=== PATIENT | female | born 1955 | race Caucasian/White ===

== ENCOUNTER 2016-07-25 15:11 | Emergency (ER) | payer OTHER, MEDICARE ==
[~2016-07-25] VITALS: Ht 170.2 cm; Wt 59.0 kg
[~2016-07-25 15:11] MED LIST: ADVAIR 250-501 EACH INH; ASPIRIN EC81 M1 PO; BISACODYL10 MG PR; BUPROPION HCL150 MG PO; CARISOPRODOL350 M1 PO; CYPROHEPTADINE H4 MG PO; DIAZEPAM10 M1 PO; FUROSEMIDE20 M1 PO; HYDROXYZINE PAM50 MG PO; LINZESS145 MC1 PO; LOPRESSOR 12.12.5 MG PO; METFORMIN HCL500 M3 PO; MORPHINE SULFAT15 MG PO; NAPROXEN500 MG PO; NEURONTIN800 M2 PO; NICOTINE T7 MG/24 HR TOP; OLANZAPINE20 MG PO; OMEPRAZOLE40 MG PO; PERCOCET 325 MG1 TA3 PO; POTASSIUM CHLO20 ME1 PO; SIMVASTATIN20 MG PO; SPIRIVA 18 MCG18 MCG INH; Senokot S PO; TRAZODONE HCL100 MG PO; TRAZODONE HCL300 M1 PO; VALIUM 10 MG. T10 MG PO; VESICARE5 M1 PO; WELLBUTRIN SR100 M1 PO; WELLBUTRIN SR150 MG PO; WELLBUTRIN100 M1 PO; ZOCOR10 M1 PO; ZYPREXA5 M1 PO; [UNRECOGNIZED DRUG - OTHER] PO
--- NOTE | 2016-07-25 15:26 | ED AMS/SEIZURE/WEAK/DIZZY ---
History of Present Illness General Chief Complaint: Altered Mental Status Stated Complaint: BIBA VN REPORT AMS, ? MED MISUSE Source: EMS Exam Limitations: clinical condition Allergies Coded Allergies: Sulfa (Sulfonamide Antibiotics) (Intermediate, BURNING-PT REPORTS WOUND TURNS GREEN 02/20/16) Triage Nurses Notes Reviewed? yes Onset: Abrupt Duration: constant Timing: single episode today Injury Environment: home Severity: severe Severity Numbers: 10 No Modifying Factors: none HPI: Patient is a 61-year-old female with a past medical history of Hypertension, hyperlipidemia, bipolar disorder on the back pain asthma, schizophrenia, chronic pain, depression who is brought in by ambulance for concerns of altered mental status. EMS states to nursing staff discussed with me that the visiting nurse presented to patient's private residence today and noted patient be slumped over in the couch and showing signs of drowsiness however is arousable. She does admit to taking an UNknown "extra" medications however no specific admission is noted by patient. History is limited due to clinical presentation Patient on examination was drowsy however arousable upon stimuli in which she does not state what medications she took however denies any suicidal or homicidal ideation. Denies any alcohol use (LONI SANCHEZ,JOSE RAFAEL) Vital Signs & Intake/Output Vital Signs & Intake/Output Vital Signs Date Time Temp Pulse Resp B/P Pulse O2 O2 Flow FiO2 Ox Delivery Rate 07/25 2102 Room Air 07/25 210 98.2 99 16 119/71 96 Room Air 07/25 1916 97.1 96 18 125/68 94 Room Air 07/25 1651 90 16 116/64 99 Nasal 2.0L Cannula 07/25 1553 Nasal 2.0L Cannula 07/25 1519 103 18 101/65 94 Room Air Reconcile Medications Albuterol Sulfate (Proair Hfa) 90 MCG HFA.AER.AD 2 PUF INH 4 TIMES/DAY NPO RESPIRATORY (Reported) Aspirin (Ecotrin*) 81 MG TABLET.DR 1 TAB PO DAILY HEART (Reported) Bupropion HCl (Wellbutrin Sr) 150 MG TABLET.ER 1 TAB PO BID UNKNOWN (Reported ) Carisoprodol 350 MG TABLET 1 TAB PO TID MUSCLE RELAXER (Reported) Diazepam 10 MG TABLET 1-2 TAB PO AD PRN PRIOR TO PROCEDURE (Reported) Fluticasone/Salmeterol (Advair 250-50 Diskus) 250 MCG-50 MCG/DOSE BLST.W.DEV 1 PUF INH BID RESPIRATORY (Reported) Furosemide 20 MG TABLET 0.5 TAB PO DAILY PRN EDEMA (Reported) Gabapentin (Neurontin) 800 MG TABLET 1 TAB PO TID NERVE PAIN (Reported) Hydroxyzine Pamoate (Vistaril) 50 MG CAPSULE 1 CAP PO 4 TIMES/DAY UNKNOWN ( Reported) Latanoprost (Xalatan) 0.005 % DROPS 1 GTT OPH QHS BOTH EYES (Reported) Linaclotide (Linzess) 145 MCG CAPSULE 1 CAP PO DAILY GI (Reported) Magnesium Oxide (Magnesium) 400 MG CAPSULE 1 CAP PO DAILY SUPPLEMENT ( Reported) Metformin HCl 500 MG TABLET 1 TAB PO QAM DM (Reported) Multivitamin (Multi-Day Vitamins) 1 EACH TABLET 1 TAB PO DAILY SUPPLEMENT ( Reported) Nitroglycerin 0.4 MG TAB.SUBL 1 TAB SL AD PRN CHEST PAIN (Reported) 1st sign of attack; may repeat every 5 minutes until relief; if pain persists after 3 tablets in 15 minutes, prompt medical att Olanzapine (Zyprexa) 5 MG TABLET 1 TAB PO QPM MENTAL HEALTH (Reported) Olanzapine 20 MG TABLET 1 TAB PO QPM MENTAL HEALTH (Reported) [place]-3/Dha/Epa/Fish Oil (Fish Oil 1,000 MG Softgel) 1,000 MG (120 MG-180 MG) CAPSULE 1 CAP PO DAILY SUPPLEMENT (Reported) Omeprazole 40 MG CAPSULE.DR 1 CAP PO BID GI (Reported) Oxycodone HCl/Acetaminophen (Percocet 10-325 MG Tablet) 10 MG-325 MG TABLET 1 TAB PO Q6H PRN PAIN (Reported) Perphenazine/Amitriptyline HCl (Perphen-Amitrip 4 MG-50 MG Tab) 4 MG-50 MG TABLET 1 TAB PO TID MENTAL HEALTH (Reported) Potassium Chloride 10 MEQ TABLET.ER 2 TAB PO DAILY SUPPLEMENT (Reported) Simvastatin (Zocor*) 10 MG TABLET 1 TAB PO DAILY CHOLESTEROL (Reported) Solifenacin Succinate (Vesicare) 5 MG TABLET 1 TAB PO DAILY BLADDER (Reported ) Tiotropium [place] (Spiriva) 18 MCG CAP.W.DEV 1 CAP INH DAILY RESPIRATORY ( Reported) Topiramate (Topamax) 100 MG TABLET 1 TAB PO BID UNKNOWN (Reported) Trazodone HCl 300 MG TABLET 1 TAB PO QPM SLEEP (Reported) (BLAKE CASTREJON,SELVIN D) Past History Travel History Traveled to [place] past 21 day No Medical History Any Pertinent Medical History? see below for history Neurological: NONE EENT: NONE Cardiovascular: hypertension, hyperlipidemia Respiratory: asthma, COPD Gastrointestinal: NONE Hepatic: NONE Renal: NONE Musculoskeletal: NONE, chronic back pain, osteoarthritis Psychiatric: anxiety, bipolar disease, depression, schizophrenia Endocrine: NONE Blood Disorders: NONE Cancer(s): NONE ESE TEACHER/Reproductive: NONE History of MRSA: No History of VRE: No History of CDIFF: No Surgical History Surgical History: NECK SURGERY BACK SURGERY Psychosocial History Who do you live with Patient/Self Services at Home Nursing What is your primary language Uzbek Family History Family History, If Any: MOTHER Relation not specified for: FH: heart disease Hx Contributory? No (JOSE RAFAEL COHEN) Review of Systems Review of Systems Constitutional: Reports: no symptoms. EENTM: Reports: no symptoms. Respiratory: Reports: no symptoms. Cardiovascular: Reports: no symptoms. GI: Reports: no symptoms. Genitourinary: Reports: no symptoms. Musculoskeletal: Reports: no symptoms. Skin: Reports: no symptoms. Neurological/Psychological: Reports: no symptoms. Hematologic/Endocrine: Reports: no symptoms. Immunologic/Allergic: Reports: no symptoms. All Other Systems: Reviewed and Negative (JOSE RAFAEL COHEN) Physical Exam Physical Exam General Appearance: DROWSY AROUSABLE WITHVERBAL STIMULI Head: atraumatic Comments: Well-developed well-nourished person in no acute distress HEENT: Normal EENT exam, pinpoint pupils noted extraocular motion intact, no nystagmus. Pupils equally round and reactive to light and accommodation. Nose is atraumatic. External auditory canal and Tympanic membranes clear. Pharynx normal. No swelling or edema. Neck: Supple, no lymphadenopathy, Back: Nontender, no CVA tenderness. Cardiovascular: Regular rate and rhythms no murmurs rubs or gallops, normal JVP Respiratory: Chest nontender. No respiratory distress.breath sounds clear to auscultation bilaterally Abdomen: Soft, nontender nondistended, no appreciable organomegaly. Normal bowel sounds. No ascites Extremity: No edema, no calf tenderness to palpation, normal and equal pulses. Neuro: motor sensory normal, cranial nerves II through XII grossly intact. Skin: No appreciable rash on exposed skin, skin is warm and dry. Psych: Mood and affect is normal, memory and judgment is normal. Core Measures ACS in differential dx? No CVA/TIA Diagnosis: No Severe Sepsis Present: No Septic Shock Present: No (JOSE RAFAEL COHEN) Progress Differential Diagnosis: arrythmia, alcohol intoxication, anemia, CVA/stroke, dehydration, drug intoxication, encephalitis, electrolyte imbalance, GI bleed, hypoglycemia, hypoxia, intracranial Hem., intracranial mass/tumor, labrynthitis, meningitis, Meniere's disease, migraine MADDEN, multiple sclerosis, pneumonia, postural hypotension, presyncope, post-traumatic vertigo, sepsis, seizure disorder, subarachnoid Hem., UTI/pyelo, vertebrobasilar insuff Initial ED EKG: SINUS RHYTHM 99 BPM lvh (JOSE RAFAEL COHEN) Plan of Care: Orders Procedure Date/time Status Telemetry/Kiosk Sales Representative 07/25 1538 Active Straight Cath 07/25 1538 Active ACETOMINOPHEN 07/25 1538 Complete THYROID STIMULATING HORMONE 07/25 1538 Complete TROPONIN LEVEL 07/25 1538 Complete SALICYLATE 07/25 1538 Complete MAGNESIUM 07/25 1538 Complete LACTIC ACID 07/25 1538 Complete FREE T4 07/25 1538 Complete ETHANOL 07/25 1538 Complete COMPREHENSIVE METABOLIC PANEL 07/25 1538 Complete CBC WITHOUT DIFFERENTIAL 07/25 1538 Complete Avitia, Insertion/Removal/Asses 07/25 1531 Complete CULTURE,URINE 07/25 1531 Active URINE DRUGS OF ABUSE 07/25 1531 Complete URINALYSIS 07/25 1531 Complete EKG 07/25 1518 Active Laboratory Tests 07/25/16 1838: Lactic Acid Cancelled 07/25/16 1545: Urine Opiates Screen > 4000.00 H, Methadone Screen 120, Barbiturate Screen < 60 , Ur Phencyclidine Scrn 8.00, Amphetamines Screen 620, U Benzodiazepines Scrn < 85, Urine Cocaine Screen < 50, Urine Cannabis Screen 17.50 07/25/16 1545: Anion Gap 8, Estimated GFR 57 L, BUN/Creatinine Ratio 12.0, Glucose 88, Lactic Acid 0.6 L, Calcium 9.8, Magnesium 1.8, Total Bilirubin 0.3, AST 15, ALT 34, Alkaline Phosphatase 102, Troponin I < 0.01, Total Protein 6.4, Albumin 3.5, Globulin 2.9, Albumin/Globulin Ratio 1.2, TSH 3.870, Free T4 1.08, CBC w Diff NO MAN DIFF REQ, RBC 4.57, MCV 85.3, MCH 28.0, RDW 14.3, MPV 6.7 L, Gran % 67.8, Lymphocytes % 24.0, Monocytes % 7.9, Eosinophils % 0.1, Basophils % 0.2, Absolute Granulocytes 6.7 H, Absolute Lymphocytes 2.4, Absolute Monocytes 0.8 H, Absolute Eosinophils 0, Absolute Basophils 0, PUBS MCHC 32.9 L, Salicylates 1.6, Acetaminophen < 10.0 L, Serum Alcohol < 10.0, Urine Color YEL, Urine Clarity HAZY H, Urine pH 6.0, Ur Specific [place] 1.025, Urine Protein NEG, Urine Ketones NEG, Urine Nitrite NEG, Urine Bilirubin NEG, Urine Urobilinogen 0.2, Ur Leukocyte Esterase SMALL H, Ur Microscopic SEDIMENT EXAMINED, Urine RBC RARE, Urine WBC 3-5 H, Ur Epithelial Cells FEW, Urine Hemoglobin NEG, Urine Glucose NEG Microbiology 07/25 1545 URINE ROUT: Urine Culture - RECD Patient had no focal neurological deficits on initial exam Patient noted to be significantly drowsy and intoxication was of suspicion. Oxygen saturation with 2 L of nasal cannula supplementation patient noted to be 98% and again patient was arousable with verbal stimulation and followed all commands appropriately. Patient after blood work was obtained showed significant concerns of opiate intoxication in which she was immediately administered Narcan which she responded and was more alert and attentive I then asked patient what she took and she states that she took a roommates 3 tablets of unknown amount of milligram dosing of narcotic Patient currently is alert and oriented 07/25/2016 7:07:50 PM patient on reevaluation was again alert and oriented in no signs of intoxication Patient was evaluated on multiple occasions and noted to have 100% room air oxygenation and was alert and oriented had normal steady gait and which I strongly advised patient to take only her medications Patient had declined opiate detox Discussed disposition plan with Dr. Haq who agrees Patient was transferred home [facility] also was strongly advised to not continue with taking opiates (JOSE RAFAEL COHEN) Departure Departure Disposition: HOME OR SELF CARE Condition: Stable Clinical Impression Primary Impression: Opiate overdose Referrals: AMANDA FRY MD (PCP/Family) Additional Instructions: As discussed please take only your home medications as directed. Follow-up with your primary care doctor for your next appointment. If symptoms worsen return to emergency room Departure Forms: Customer Survey General Discharge Information (JOSE RAFAEL COHEN) PA/CORE WORKER Co-Sign Statement Statement: ED Attending supervision documentation- [] I saw and evaluated the patient. I have also reviewed all the pertinent lab results and diagnostic results. I agree with the findings and the plan of care as documented in the PA's/CORE WORKER's documentation. [x] I have reviewed the ED Record and agree with the PA's/CORE WORKER's documentation. [] Additions or exceptions (if any) to the PAs/CORE WORKER's note and plan are summarized below: [] (BLAKE CASTREJON,SELVIN Clancy) Critical Care Note Critical Care Note Critical Care Time: 30-74 min (JOSE RAFAEL COHEN)
[2016-07-25 16:04] LABS: ABSOLUTE BASOPHIL COUNT 0 /CUMM (0.0-0.2); ABSOLUTE EOSINOPHIL COUNT 0 /CUMM (0.0-0.7); ABSOLUTE GRANULOCYTE CT 6.7 /CUMM (1.4-6.5); ABSOLUTE LYMPH COUNT 2.4 /CUMM (1.2-3.4); ABSOLUTE MONOCYTE COUNT 0.8 /CUMM (0.10-0.60); BASOPHIL % 0.2 % (0.0-2.0); MEAN CORPUSCULAR HGB CONC 32.9 G/DL (33.0-37.0); MEAN PLATELET VOLUME 6.7 FL (7.4-10.4); PLATELET COUNT 393 /CUMM (130-400); RBC DISTRIBUTION WIDTH 14.3 % (11.5-14.5); RED BLOOD CELL CT 4.57 /CUMM (4.20-5.40); WHITE BLOOD CELL COUNT 9.9 /CUMM (4.8-10.8)
[2016-07-25 16:08] LABS: EOSINOPHIL % 0.1 % (0-5); GRANULOCYTE % 67.8 % (42.2-75.2); MEAN CORPUSCULAR VOLUME 85.3 FL (81.0-99.0)
[2016-07-25] MEDS ORDERED: FISH OIL 1,001000 MG PO (19:40)
[2016-07-25] MEDS ORDERED: MAGNESIUM400 M1 PO (19:42)
[2016-07-25] MEDS ORDERED: MULTI-DAY VITA1 EACH PO (19:43)
[2016-07-25] MEDS ORDERED: NITROGLYCERIN0.4 M1 SL (19:44)
[2016-07-25] MEDS ORDERED: PERCOCET 10-321 EACH PO (19:44)
[2016-07-25] MEDS ORDERED: POTASSIUM CHLO10 ME4 PO (19:45)
[2016-07-25] MEDS ORDERED: PROAIR HFA8.5 GM INH (19:46)
[2016-07-25] MEDS ORDERED: OMEPRAZOLE40 M1 PO (19:46)
[2016-07-25] MEDS ORDERED: SPIRIVA18 MCG INH (19:47)
[2016-07-25] MEDS ORDERED: VISTARIL50 M1 PO (19:55)
[2016-07-25] MEDS ORDERED: XALATAN2.5 ML OPH (19:56)
[2016-07-25] MEDS ORDERED: OLANZAPINE20 M1 PO (19:57)
[2016-07-25] MEDS ORDERED: TOPAMAX100 M1 PO (20:00)
[2016-07-25] MEDS ORDERED: PERPHEN AMITRI PO (20:00)
[2016-07-25] MEDS ORDERED: WELLBUTRIN SR150 M1 PO (20:01)
[2016-07-25 21:03] VITALS: BP 119/71
--- NOTE | 2016-07-27 11:21 | OP PSYCH INCIDENTAL NOTE ---
OPS Incidential Note Details: Telephone call with Mr.Daniel Jitendra RN, from [facility]-the patient was BIB the visiting nurse on duty to the ED on 07/25/16. As per Jan, to whom the nurse on duty reported to, Magalys was "out of it, nodding, in/out of consciousness(asleep/awake). The patient told jan that she had been snorting heroin because "it helps". At the beginning of every month the patient says she receives her disability check and there is "a person" coming in and bringing her the drugs. She recieved narcane in the ED. She was also diagnosed with a UTI. The UDS was positive for opioids/morphine > 4000, urine culture showed Gram negative rods, confirmed E.Coli. The patient was discharged home the same night, 07/25/16 with instruction to make romeo. with PCP, Dr. Luis Reeves, [phone]. [address] Reeves to inform him of this, with the patient's consent. Called Magalys and urged her to make an romeo. with and us to f/u on the most recent events. We left a message for Magalys with availability to see her today,07/27/16 at 1:30 pm, we are waiting for the call back. We spoke with Dr. Reeves, he asked us to urge the patient to make an romeo. with him as soon as possible for treatment of UTI. CPM[facility]- the patient filled a prescription for endocet 07/03/16, 90 tablets. She is in treatment with for pain management. We will f/u.
== END 2016-07-25 21:48 ==
LOC: ERH 15:11
PROVIDERS: Physician Assistant
DX: T40.601A Poisoning by unspecified narcotics, accidental (unintentional), initial encounter (principal)
CPT/HCPCS: 80307; 81001; 87086; 93005; 93010; 96374; 99291; G0480; J2310

== ENCOUNTER 2016-09-07 13:12 | Emergency (ER) | payer OTHER, MEDICARE ==
[~2016-09-07] VITALS: Ht 170.2 cm; Wt 54.4 kg
[~2016-09-07 13:12] MED LIST changes: +FISH OIL 1,001000 MG PO; +MAGNESIUM400 M1 PO; +MULTI-DAY VITA1 EACH PO; +NITROGLYCERIN0.4 M1 SL; +OLANZAPINE20 M1 PO; +OMEPRAZOLE40 M1 PO; +PERCOCET 10-321 EACH PO; +PERPHEN AMITRI PO; +POTASSIUM CHLO10 ME4 PO; +PROAIR HFA8.5 GM INH; +SPIRIVA18 MCG INH; +TOPAMAX100 M1 PO; +VISTARIL50 M1 PO; +WELLBUTRIN SR150 M1 PO; +XALATAN2.5 ML OPH
[2016-09-07 14:18] LABS: ABSOLUTE BASOPHIL COUNT 0 /CUMM (0.0-0.2); ABSOLUTE EOSINOPHIL COUNT 0 /CUMM (0.0-0.7); ABSOLUTE LYMPH COUNT 2.8 /CUMM (1.2-3.4); ABSOLUTE MONOCYTE COUNT 0.8 /CUMM (0.10-0.60); BASOPHIL % 0.4 % (0.0-2.0); EOSINOPHIL % 0.2 % (0-5); HEMATOCRIT 36.7 % (37-47); MEAN CORPUSCULAR HGB 28.1 PG (27.0-31.0); MEAN CORPUSCULAR HGB CONC 32.8 G/DL (33.0-37.0); MEAN CORPUSCULAR VOLUME 85.7 FL (81.0-99.0); MEAN PLATELET VOLUME 7.2 FL (7.4-10.4); PLATELET COUNT 418 /CUMM (130-400); RBC DISTRIBUTION WIDTH 15.1 % (11.5-14.5); RED BLOOD CELL CT 4.28 /CUMM (4.20-5.40); WHITE BLOOD CELL COUNT 8.7 /CUMM (4.8-10.8)
--- NOTE | 2016-09-07 14:30 | ED AMS/SEIZURE/WEAK/DIZZY ---
History of Present Illness General Chief Complaint: Altered Mental Status Stated Complaint: BIBA AMS Source: patient Exam Limitations: poor historian, SOMNOLENT Vital Signs & Intake/Output Vital Signs & Intake/Output Vital Signs Date Time Temp Pulse Resp B/P Pulse O2 O2 Flow FiO2 Ox Delivery Rate 09/07 1608 97.5 85 18 108/57 95 09/07 1333 98.4 86 18 107/59 99 Room Air Allergies Coded Allergies: Sulfa (Sulfonamide Antibiotics) (Intermediate, BURNING-PT REPORTS WOUND TURNS GREEN 02/20/16) Reconcile Medications Albuterol Sulfate (Proair Hfa) 90 MCG HFA.AER.AD 2 PUF INH 4 TIMES/DAY NPO RESPIRATORY (Reported) Aspirin (Ecotrin*) 81 MG TABLET.DR 1 TAB PO DAILY HEART (Reported) Bupropion HCl (Wellbutrin Sr) 150 MG TABLET.ER 1 TAB PO BID UNKNOWN (Reported ) Carisoprodol 350 MG TABLET 1 TAB PO TID MUSCLE RELAXER (Reported) Diazepam 10 MG TABLET 1-2 TAB PO AD PRN PRIOR TO PROCEDURE (Reported) Fluticasone/Salmeterol (Advair 250-50 Diskus) 250 MCG-50 MCG/DOSE BLST.W.DEV 1 PUF INH BID RESPIRATORY (Reported) Furosemide 20 MG TABLET 0.5 TAB PO DAILY PRN EDEMA (Reported) Gabapentin (Neurontin) 800 MG TABLET 1 TAB PO TID NERVE PAIN (Reported) Hydroxyzine Pamoate (Vistaril) 50 MG CAPSULE 1 CAP PO 4 TIMES/DAY UNKNOWN ( Reported) Latanoprost (Xalatan) 0.005 % DROPS 1 GTT OPH QHS BOTH EYES (Reported) Linaclotide (Linzess) 145 MCG CAPSULE 1 CAP PO DAILY GI (Reported) Magnesium Oxide (Magnesium) 400 MG CAPSULE 1 CAP PO DAILY SUPPLEMENT ( Reported) Metformin HCl 500 MG TABLET 1 TAB PO QAM DM (Reported) Multivitamin (Multi-Day Vitamins) 1 EACH TABLET 1 TAB PO DAILY SUPPLEMENT ( Reported) Nitroglycerin 0.4 MG TAB.SUBL 1 TAB SL AD PRN CHEST PAIN (Reported) 1st sign of attack; may repeat every 5 minutes until relief; if pain persists after 3 tablets in 15 minutes, prompt medical att Olanzapine (Zyprexa) 5 MG TABLET 1 TAB PO QPM MENTAL HEALTH (Reported) Olanzapine 20 MG TABLET 1 TAB PO QPM MENTAL HEALTH (Reported) [place]-3/Dha/Epa/Fish Oil (Fish Oil 1,000 MG Softgel) 1,000 MG (120 MG-180 MG) CAPSULE 1 CAP PO DAILY SUPPLEMENT (Reported) Omeprazole 40 MG CAPSULE.DR 1 CAP PO BID GI (Reported) Oxycodone HCl/Acetaminophen (Percocet 10-325 MG Tablet) 10 MG-325 MG TABLET 1 TAB PO Q6H PRN PAIN (Reported) Perphenazine/Amitriptyline HCl (Perphen-Amitrip 4 MG-50 MG Tab) 4 MG-50 MG TABLET 1 TAB PO TID MENTAL HEALTH (Reported) Potassium Chloride 10 MEQ TABLET.ER 2 TAB PO DAILY SUPPLEMENT (Reported) Simvastatin (Zocor*) 10 MG TABLET 1 TAB PO DAILY CHOLESTEROL (Reported) Solifenacin Succinate (Vesicare) 5 MG TABLET 1 TAB PO DAILY BLADDER (Reported ) Tiotropium [place] (Spiriva) 18 MCG CAP.W.DEV 1 CAP INH DAILY RESPIRATORY ( Reported) Topiramate (Topamax) 100 MG TABLET 1 TAB PO BID UNKNOWN (Reported) Trazodone HCl 300 MG TABLET 1 TAB PO QPM SLEEP (Reported) Triage Note: BIBA FROM HOME, HAD EPSIODE OF UNRESPONSIVENESS WHILE SITTING ON COUGH, EATING A DONUT. HOME HEALTH AIDE CALLED 911. ON ARRIVAL PT IS AWAKE, PALE, DISORIENTED TO TO TIME AND PLACE. AMBULATES WITH CANE. [facility], PT HAS A LOCKED BOX IN HER HOUSE FOR MEDS WHICH ARE ADMINISTERED BY RN. Triage Nurses Notes Reviewed? yes HPI: Patient presents for evaluation of altered mental status. The patient herself is unable to provide substantial history. Apparently the patient was at home eating a doughnut when she became unresponsive. Past History Travel History Traveled to [place] past 21 day No Medical History Any Pertinent Medical History? see below for history Neurological: NONE EENT: NONE Cardiovascular: hypertension, hyperlipidemia Respiratory: asthma, COPD Gastrointestinal: NONE Hepatic: NONE Renal: NONE Musculoskeletal: NONE, chronic back pain, osteoarthritis Psychiatric: anxiety, bipolar disease, depression, schizophrenia Endocrine: NONE Blood Disorders: NONE Cancer(s): NONE LADLE FILLER/Reproductive: NONE History of MRSA: No History of VRE: No History of CDIFF: No Surgical History Surgical History: NECK SURGERY BACK SURGERY Psychosocial History Who do you live with Patient/Self Services at Home Nursing What is your primary language Kyrgyz Tobacco Use: Current Daily Use Daily Tobacco Use Amount/Type: => 5 Cigarettes daily ETOH Use: denies use Family History Family History, If Any: MOTHER Relation not specified for: FH: heart disease Hx Contributory? No Review of Systems Review of Systems Constitutional: Reports: no symptoms. EENTM: Reports: no symptoms. Respiratory: Reports: no symptoms. Cardiovascular: Reports: no symptoms. GI: Reports: no symptoms. Genitourinary: Reports: no symptoms. Musculoskeletal: Reports: no symptoms. Skin: Reports: no symptoms. Neurological/Psychological: Reports: no symptoms. Hematologic/Endocrine: Reports: no symptoms. Immunologic/Allergic: Reports: no symptoms. All Other Systems: Reviewed and Negative Physical Exam Physical Exam General Appearance: SEE BELOW Comments: Gen.: Well-nourished, well-developed, no acute respiratory distress. Head: Normocephalic, atraumatic. Eyes: Normal inspection bilaterally, pupils 2 mm but otherwise round and reactive Ears: Normal inspection bilaterally Nose: Normal inspection Throat/mouth : Moist mucosa Neck: Supple, full range of motion, no goiter Heart: Regular rate and rhythm, no murmurs rubs or gallops Lungs: Clear to auscultation bilaterally with normal air entry Chest: Nontender Back: Normal range of motion Abdomen: Soft, nontender, mildly distended/tympanic, normal bowel sounds Extremities: Normal range of motion grossly, equal radial pulses, no cyanosis clubbing or edema, calves nontender Neurologic: Cranial nerves grossly intact, speech is clear Skin: warm and dry Psychiatric: Calm, cooperative, no apparent delusions or hallucinations Core Measures ACS in differential dx? No CVA/TIA Diagnosis: No Severe Sepsis Present: No Septic Shock Present: No Progress Differential Diagnosis: anemia, dehydration, hypoglycemia, hypoxia, MEDICATION SIDE EFFECT Plan of Care: Orders Procedure Date/time Status Add-on Test (ER Only) 09/07 1429 Active URINE DRUG SCREEN FOR ER ONLY 09/07 1429 Complete CBC WITHOUT DIFFERENTIAL 09/07 1408 Complete BASIC METABOLIC PANEL 09/07 1408 Complete THYROID STIMULATING HORMONE 09/07 1400 Complete ETHANOL 09/07 1400 Complete EKG 09/07 1323 Active Laboratory Tests 09/07/16 1621: Urine Opiates Screen > 4000.00 H, Methadone Screen 77, Barbiturate Screen < 60, Ur Phencyclidine Scrn < 6.00, Amphetamines Screen 384, U Benzodiazepines Scrn < 85, Urine Cocaine Screen < 50, Urine Cannabis Screen < 5.00 09/07/16 1400: Anion Gap 9, Estimated GFR > 60, BUN/Creatinine Ratio 12.5, Glucose 75, Calcium 10.8 H, TSH 4.420 H, CBC w Diff NO MAN DIFF REQ, RBC 4.28, MCV 85.7, MCH 28.1, RDW 15.1 H, MPV 7.2 L, Gran % 57.0, Lymphocytes % 32.7, Monocytes % 9.7 H, Eosinophils % 0.2, Basophils % 0.4, Absolute Granulocytes 5.0, Absolute Lymphocytes 2.8, Absolute Monocytes 0.8 H, Absolute Eosinophils 0, Absolute Basophils 0, PUBS MCHC 32.8 L, Serum Alcohol < 10.0 Initial ED EKG: NSR, no ST T wave changes Comments: 09/07/2016 5:55:23 PM I have advised patient of her test results and she now admits that she took some of her friend's pain relievers. She is currently awake alert with clear speech. She is requesting a taxi home. Departure Departure Disposition: HOME OR SELF CARE Condition: Stable Clinical Impression Primary Impression: Medication side effect Referrals: AMANDA FRY MD (PCP/Family) Additional Instructions: Take only your own medications as prescribed. Follow-up with your primary care doctor this week. Return if any concerns or sudden worsening. Departure Forms: Customer Survey General Discharge Information
[2016-09-07 18:12] VITALS: BP 106/59
== END 2016-09-07 18:14 ==
LOC: ERH 13:12
PROVIDERS: Emergency Medicine
DX: T50.901A Poisoning by unspecified drugs, medicaments and biological substances, accidental (unintentional), initial encounter (principal)
CPT/HCPCS: 80307; 93005; 93010; G0480

== ENCOUNTER 2016-10-27 16:29 | Inpatient (IN) | payer OTHER, MEDICARE ==
[~2016-10-27] VITALS: Ht 170.2 cm; Wt 45.4 kg
--- NOTE | 2016-10-27 16:41 | NUR ---
PT GWENHailey FROM HOME AFTER NEIGHBORS CALLED 911 DUE TO PT NOT BEING SEEN "FOR A FEW DAYS". 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 PT REMAINS LETHARGIC BUT AROUSABLE, ONLY ABLE TO VERBALIZE THAT SHE TOOK "TOO MANY TRAZODONE". KNOWS SHE IS AT [facility], BUT UNAWARE OF HOW SHE ARRIVED HERE.
--- NOTE | 2016-10-27 16:44 | ED CRITICAL CARE ---
History of Present Illness General Chief Complaint: General Adult Stated Complaint: BIBA, UNRESPONSIVE Source: family, old records, EMS Exam Limitations: clinical condition Vital Signs & Intake/Output Vital Signs & Intake/Output Vital Signs Date Time Temp Pulse Resp B/P B/P Pulse O2 O2 Flow FiO2 Mean Ox Delivery Rate 10/28 0800 98.7 82 22 150/73 100 Nasal 2.0L Cannula 10/28 0732 99 Nasal 2.0L Cannula 10/28 0400 100 Nasal 2.0L Cannula 10/27 2300 100 Nasal 2.0L Cannula 10/27 2120 98.7 83 14 149/71 100 Room Air 10/27 2020 98.1 75 14 132/69 98 Room Air 10/27 1917 81 20 150/71 100 Nasal 2.0L Cannula 10/27 1805 97.8 82 13 132/62 99 Room Air 10/27 1655 97.9 87 12 141/60 99 Room Air ED Intake and Output 10/28 0000 10/27 1200 Intake Total 1000 Output Total 1350 Balance -350 Intake, IV 1000 Output, Urine 1350 Patient 99 lb 15.99 oz Weight Weight Reported by Patient Measurement Method Allergies Coded Allergies: Sulfa (Sulfonamide Antibiotics) (Intermediate, BURNING-PT REPORTS WOUND TURNS GREEN 02/20/16) Reconcile Medications Albuterol Sulfate (Proair Hfa) 90 MCG HFA.AER.AD 2 PUF INH 4 TIMES/DAY NPO RESPIRATORY (Reported) Aspirin (Ecotrin*) 81 MG TABLET.DR 1 TAB PO DAILY HEART (Reported) Bupropion HCl (Wellbutrin Sr) 150 MG TABLET.ER 1 TAB PO BID UNKNOWN (Reported ) Carisoprodol 350 MG TABLET 1 TAB PO TID MUSCLE RELAXER (Reported) Diazepam 10 MG TABLET 1-2 TAB PO AD PRN PRIOR TO PROCEDURE (Reported) Fluticasone/Salmeterol (Advair 250-50 Diskus) 250 MCG-50 MCG/DOSE BLST.W.DEV 1 PUF INH BID RESPIRATORY (Reported) Furosemide 20 MG TABLET 0.5 TAB PO DAILY PRN EDEMA (Reported) Gabapentin (Neurontin) 800 MG TABLET 1 TAB PO TID NERVE PAIN (Reported) Hydroxyzine Pamoate (Vistaril) 50 MG CAPSULE 1 CAP PO 4 TIMES/DAY UNKNOWN ( Reported) Latanoprost (Xalatan) 0.005 % DROPS 1 GTT OPH QHS BOTH EYES (Reported) Linaclotide (Linzess) 145 MCG CAPSULE 1 CAP PO DAILY GI (Reported) Magnesium Oxide (Magnesium) 400 MG CAPSULE 1 CAP PO DAILY SUPPLEMENT ( Reported) Metformin HCl 500 MG TABLET 1 TAB PO QAM DM (Reported) Multivitamin (Multi-Day Vitamins) 1 EACH TABLET 1 TAB PO DAILY SUPPLEMENT ( Reported) Nitroglycerin 0.4 MG TAB.SUBL 1 TAB SL AD PRN CHEST PAIN (Reported) 1st sign of attack; may repeat every 5 minutes until relief; if pain persists after 3 tablets in 15 minutes, prompt medical att Olanzapine (Zyprexa) 5 MG TABLET 1 TAB PO QPM MENTAL HEALTH (Reported) Olanzapine 20 MG TABLET 1 TAB PO QPM MENTAL HEALTH (Reported) Aspen-3/Dha/Epa/Fish Oil (Fish Oil 1,000 MG Softgel) 1,000 MG (120 MG-180 MG) CAPSULE 1 CAP PO DAILY SUPPLEMENT (Reported) Omeprazole 40 MG CAPSULE.DR 1 CAP PO BID GI (Reported) Oxycodone HCl/Acetaminophen (Percocet 10-325 MG Tablet) 10 MG-325 MG TABLET 1 TAB PO Q6H PRN PAIN (Reported) Perphenazine/Amitriptyline HCl (Perphen-Amitrip 4 MG-50 MG Tab) 4 MG-50 MG TABLET 1 TAB PO TID MENTAL HEALTH (Reported) Potassium Chloride 10 MEQ TABLET.ER 2 TAB PO DAILY SUPPLEMENT (Reported) Simvastatin (Zocor*) 10 MG TABLET 1 TAB PO DAILY CHOLESTEROL (Reported) Solifenacin Succinate (Vesicare) 5 MG TABLET 1 TAB PO DAILY BLADDER (Reported ) Tiotropium [place] (Spiriva) 18 MCG CAP.W.DEV 1 CAP INH DAILY RESPIRATORY ( Reported) Topiramate (Topamax) 100 MG TABLET 1 TAB PO BID UNKNOWN (Reported) Trazodone HCl 300 MG TABLET 1 TAB PO QPM SLEEP (Reported) Triage Note: PT BIBA FROM HOME AFTER NEIGHBORS CALLED 911 DUE TO PT NOT BEING SEEN "FOR A FEW DAYS". PER REPORT PT WITH HX OF NARCOTIC ABUSE; GIVEN 0.4 NARCAN LATHMAKER. #20 IN LAC. PT REMAINS LETHARGIC BUT AROUSABLE, ONLY ABLE TO VERBALIZE THAT SHE TOOK "TOO MANY TRAZODONE". KNOWS SHE IS AT [facility], BUT UNAWARE OF HOW SHE ARRIVED HERE. Triage Nurses Notes Reviewed? yes Onset: unknown Duration: day(s): (1) Timing: single episode today Injury Environment: home Severity: moderate, severe Method of Injury: POSSIBLE FALL Associated Symptoms: UNRESPONSIVE ON GROUND HPI: This is a 61-year-old female with history of chronic back pain, hypertension, dyslipidemia and COPD who presents via EMS from home for unresponsive episode. According to EMS she was found unresponsive on the ground by the brother and she was given a dose of Narcan in the field with some response. He last spoke to her yesterday. Brother reports that a visiting nurse comes to medicate her and that she has some medications in a lock box. Patient arrives lethargic, responsive to loud verbal stimuli. Past History Travel History Traveled to [facility] past 21 day No Medical History Any Pertinent Medical History? see below for history Neurological: NONE EENT: NONE Cardiovascular: hypertension, hyperlipidemia Respiratory: asthma, COPD Gastrointestinal: NONE Hepatic: NONE Renal: NONE Musculoskeletal: NONE, chronic back pain, osteoarthritis Psychiatric: anxiety, bipolar disease, depression, schizophrenia Endocrine: NONE Blood Disorders: NONE Cancer(s): NONE PHYSICIAN RELATIONS SPECIALIST/Reproductive: NONE History of MRSA: No History of VRE: No History of CDIFF: No Surgical History Surgical History: NECK SURGERY BACK SURGERY Psychosocial History Who do you live with Patient/Self Services at Home Nursing What is your primary language Swedish Family History Family History, If Any: MOTHER Relation not specified for: FH: heart disease Hx Contributory? No Review of Systems Review of Systems Constitutional: Reports: see HPI (UNABLE TO OBTAIN). Physical Exam Physical Exam General Appearance: lethargic, moderate distress, severe distress, thin Head: atraumatic Eyes: Bilateral: other (4 MM BILATERAL, RESPONSIVE). Ears, Nose, Throat, Mouth: hearing grossly normal, DRY MUCUS MEMBRANES Neck: normal inspection, supple Respiratory: normal breath sounds, chest non-tender, no respiratory distress Cardiovascular: regular rate/rhythm Peripheral Pulses: 1+ radial (R), 1+ radial (L) Gastrointestinal: soft, non-tender, SCAPHOID Extremities: normal range of motion Neurologic/Psych: LETHARGIC Skin: intact, normal color, warm/dry Core Measures ACS in differential dx? Yes ASA ordered for poss ACS? No-ACS ruled out CVA/TIA Diagnosis: No Severe Sepsis Present: No Septic Shock Present: No Progress Differential Diagnoses I considered the following diagnoses in my evaluation of the patient: [SYNCOPE, CVA, NARCOTIC OVERDOSE, BENZO OVERDOSE, SEPSIS, AMI, SEIZURE] Plan of Care: Orders Procedure Date/time Status ICU LAB BUNDLE 10/29 0500 Active CBC WITHOUT DIFFERENTIAL 10/29 0500 Active Consistent Carbohydrate 3 10/28 B Active NUTRITIONAL CONSULT 10/28 0933 Active Vital Signs 10/28 0919 Active Transfer patient to 10/28 0905 Active Transfer patient to 10/28 0856 Active TROPONIN LEVEL 10/28 0800 Complete EKG 10/28 0800 Active Patient Safety Monitor 10/28 0730 Active ICU LAB BUNDLE 10/28 0500 Complete CBC WITHOUT DIFFERENTIAL 10/28 0500 Complete Weight 10/28 0413 Active Turn and Reposition 10/28 0413 Active Teach/Educate 10/28 0413 Active Skin Integrity Protocol 10/28 0413 Active Skin/Pressure Ulcer Assess (Sk 10/28 0413 Active Precautions 10/28 0413 Active Pain Treatment and Response 10/28 0413 Active Nutritional Intake, Monitor 10/28 0413 Active Isolation 10/28 0413 Active Patient Care Conference 10/28 0413 Active Activity/Ambulation 10/28 0413 Active TROPONIN LEVEL 10/28 0200 Complete EKG 10/28 0200 Active VRE ACTIVE SURVIELLANCE 10/27 2234 Active ACTIVE SURVEILLANCE NARES 10/27 223 Active OXYGEN SETUP (GEN) 10/27 2200 Complete Eva Coma Scale 10/27 2113 Active Patient Safety Monitor 10/28 2023 Complete ED- [place]ow Coma Scale 10/28 2023 Complete TROPONIN LEVEL 10/28 2023 Complete EKG 10/28 2023 Active SOCIAL WORK CONSULT 10/28 2023 Active ED CRISIS PSYCH CONSULT 10/28 2023 Active Pathway - chart 10/27 193 Active House Staff 10/27 1936 Active Patient Data 10/27 1936 Active Code Status 10/27 1936 Active Patient Data 10/27 1909 Active Admit to inpatient 10/27 1852 Active Vital Signs 10/27 1852 Complete Code Status 10/27 1852 Complete Patient Safety Monitor 10/27 1851 Complete ARTERIAL BLOOD GAS (GEN) 10/27 1835 Complete Intake & Output 10/27 1715 Active Telemetry/Superintendent Gas Distribution 10/27 1651 Active Pettit, Insertion/Removal/Asses 10/27 1650 Complete CULTURE,URINE 10/27 1650 Active URINE DRUGS OF ABUSE 10/27 1650 Complete URINALYSIS 10/27 1650 Complete MAGNESIUM 10/27 1650 Complete ETHANOL 10/27 1650 Complete COMPREHENSIVE METABOLIC PANEL 10/27 1650 Complete CREATINE PHOSPHOKINASE 10/27 1650 Complete CBC WITHOUT DIFFERENTIAL 10/27 1650 Complete EKG 10/27 1632 Active OXYGEN SETUP CHG 10/27 UNK Complete OXYGEN 10/27 UNK Complete OXYGEN TRANSPORT 10/27 UNK Complete VTE Mechanical Prophylaxis 10/27 UNK Active FingerStick- Glucose 10/27 UNK Active PSYCHIATRIC CONSULT 10/27 UNK Active Current Medications Sig/Kobe Start time Last Medication Dose Stop Time Status Admin Atorvastatin Calcium 10 MG 1700 10/28 1700 AC (Lipitor) Albuterol Sulfate 2 PUF 4 TIMES/DAY NPO 10/28 1000 AC 10/28 (Ventolin) 0926 Aspirin Buffered 81 MG DAILY 10/28 1000 AC 10/28 (Ecotrin) 0925 Magnesium Oxide 400 MG DAILY 10/28 1000 AC 10/28 (Mag-Ox) 0925 Solifenacin 5 MG DAILY 10/28 1000 AC 10/28 (Vesicare) 0925 Tiotropium [place] 1 PUF DAILY 10/28 1000 AC 10/28 (Spiriva) 0925 Topiramate 100 MG BID 10/28 1000 CAN (Topamax) Insulin Aspart 0 TIDAC 10/28 0800 AC (NovoLOG) Magnesium Oxide 400 MG ONE ONE 10/28 0800 CAN (Mag-Ox) 10/28 0801 Omeprazole 40 MG DAILY AC 10/28 0700 AC 10/28 (Prilosec) 0638 Latanoprost 1 GTT 2200 10/27 2230 AC 10/27 (Xalatan) 2346 Fluticasone 2 PUF BID 10/27 2200 AC 10/28 Propionate 0926 (Flovent) Furosemide 10 MG DAILY PRN 10/27 213 AC (Lasix) Oxycodone/ 2 TAB Q6P PRN 10/27 213 AC Acetaminophen (Percocet) Lorazepam 1 MG Q1 NEEDED PRN 10/27 2100 AC (Ativan) Sodium Chloride 1,000 ML Q13H 10/27 2030 AC 10/27 (Normal Saline 0.9%) 2309 Acetaminophen 325 MG Q6P PRN 10/27 1944 AC (Tylenol) Oxycodone HCl 5 MG Q6P PRN 10/27 1944 AC (Roxicodone) Oxycodone/ 2 TAB Q6P PRN 10/27 1944 AC Acetaminophen (Percocet) Enoxaparin Sodium 40 MG DAILY 10/27 1933 AC 10/28 (Lovenox) 0925 Naloxone HCl 4 MG ONCE ONE 10/27 1844 CAN (Narcan Drip 4MG/ 10/27 1845 10ML) Dextrose/Water 1,000 ML (D5W 1000) Laboratory Tests 10/28/16 0830: Troponin I < 0.01 10/28/16 0400: Anion Gap 7, Estimated GFR > 60, Glucose 88, Calcium 8.4, Phosphorus 4.0, Magnesium 1.6, Total Bilirubin 0.2, AST 11 L, ALT 36, Albumin 2.5 L, CBC w Diff NO MAN DIFF REQ, RBC 3.75 L, MCV 85.6, MCH 28.1, RDW 14.7 H, MPV 7.2 L, Gran % 74.2, Lymphocytes % 18.8 L, Monocytes % 5.9, Eosinophils % 0.8, Basophils % 0.3, Absolute Granulocytes 6.9 H, Absolute Lymphocytes 1.7, Absolute Monocytes 0.6, Absolute Eosinophils 0.1, Absolute Basophils 0, PUBS MCHC 32.8 L 10/28/16 0210: Troponin I < 0.01 10/27/162049: Troponin I < 0.01 10/27/16 1910: pH 7.41, pCO2 31 L, pO2 84, HCO3 19 L, ABG O2 Sat (Measured) 96.0, P-50 (Temp Corrected) YES, Carboxyhemoglobin 1.4 L, O2 Concentration % 2L, Temperature 97.8, O2 Delivery Method NC, Phlebotomy Draw Site RIGHT BRACHIAL 10/27/16 1730: Anion Gap 11, Estimated GFR > 60, BUN/Creatinine Ratio 15.0, Glucose 75, Calcium 9.7, Magnesium 1.7, Total Bilirubin 0.3, AST 17, ALT 38, Alkaline Phosphatase 122, Creatine Kinase 86, Total Protein 6.2 L, Albumin 3.5, Globulin 2.7, Albumin/Globulin Ratio 1.3, CBC w Diff NO MAN DIFF REQ, RBC 3.89 L, MCV 85.2, MCH 28.2, RDW 14.5, MPV 7.2 L, Gran % 67.5, Lymphocytes % 23.5, Monocytes % 7.7 , Eosinophils % 0.8, Basophils % 0.5, Absolute Granulocytes 6.2, Absolute Lymphocytes 2.2, Absolute Monocytes 0.7 H, Absolute Eosinophils 0.1, Absolute Basophils 0, PUBS MCHC 33.1, Serum Alcohol < 10.0 10/27/16 1715: Urine Opiates Screen 1736.00, Methadone Screen 92, Barbiturate Screen < 60, Ur Phencyclidine Scrn < 6.00, Amphetamines Screen 511, U Benzodiazepines Scrn > 800 H, Urine Cocaine Screen < 50, Urine Cannabis Screen 15.60, Urine Color YEL, Urine Clarity CLDY H, Urine pH 6.0, Ur Specific [place] 1.020, Urine Protein NEG, Urine Ketones NEG, Urine Nitrite POS H, Urine Bilirubin NEG, Urine Urobilinogen 0.2, Ur Leukocyte Esterase SMALL H, Ur Microscopic SEDIMENT EXAMINED, Urine RBC RARE, Urine WBC 3-5 H, Ur Epithelial Cells FEW, Urine Bacteria PACKD H, Urine Mucus RARE, Urine Hemoglobin NEG, Urine Glucose NEG Microbiology 10/27 2244 UPPER RESP: Surveillance Culture - RECD 10/27 2244 GI: Surveillance Culture - RECD 10/27 1714 URINE ROUT: Urine Culture - RES GRAM NEGATIVE RODS EKG, TELE MONITOR, IV FLUIDS, NARCAN IV. HEAD/NECK CT ORDERED. REPEAT NARCAN NEEDED. IV FLUIDS CONTINUING. PETTIT CATHETER PLACED. ABG ORDERED. 10/27/2016 6:37:19 PM Patient again unresponsive again to verbal or sternal rub. She woke up after IV Narcan doses. At this time we will order a Narcan drip. 2 mg IV Narcan bolus ordered. Dr. Lala Thapa for ICU admission. (JD CASTREJON,NANCY) Diagnostic Imaging: Viewed by Me: CT Scan. Discussed w/RAD: CT Scan. Radiology Impression: PATIENT: THELMA VENTURA PRESENT AGE: 61 PATIENT ACCOUNT NO: [id number] : 59 LOCATION: [facility] ORDERING PHYSICIAN: NANCY MILES MD SERVICE DATE: 10/27/16 EXAM TYPE: CAT - CT CERV SPINE WO IV CONTRAST; CT HEAD WO IV CONTRAST EXAMINATION: CT HEAD. CT CERVICAL SPINE CLINICAL INFORMATION: Found on ground unresponsive. Evaluate for fracture. COMPARISON: Prior cervical examinations most recent MRI September 2014. Prior CT head exams most recent October 2014 TECHNIQUE: CT scan of the head without contrast with additional coronal reformatted images obtained CT scan of the cervical spine with additional sagittal coronal reformatted images obtained at the acquisition workstation. FINDINGS: CT head: There is no mass hemorrhage or cerebral edema ventricles and basal cisterns are unremarkable. Soft tissues: Normal. Mastoid air cells: Normal. Sinuses: Normal. Cervical spine: There are postop changes related to laminectomy from C3 through C5. I do not see a fracture or acute abnormality. C3-C4: There is grade 1-2 anterolisthesis of C3 on C4. This anterior translation is more prominent than that noted on the prior MRI September 2014. There is severe disc space narrowing at this level. The facets are fused on the left at the C3-C4 level. The facets are fused in the right at the C4-C5 level. There is severe facet arthrosis on the right at the C2-C3 and C3-C4 level. There is moderate facet arthrosis on the left at the C2-C3 level. There is severe degenerative disc changes present at the C4-C5 and C5-C6 and C6- C7 levels with disc space narrowing endplate osteophytes. Emphysematous changes in the lung apices IMPRESSION: CT head: No acute abnormality. No change CT Cervical spine: No acute abnormality. Postsurgical changes as described. Increasing anterolisthesis of C3-C4 compared with the most recent MRI September 2014. DICTATED BY: NIRANJAN NAPIER MD DATE/TIME DICTATED:10/27/161750 LABORATORY TESTER:NIGEL DATE/TIME TRANSCRIBED:10/27/161750 CONFIDENTIAL, DO NOT COPY WITHOUT APPROPRIATE AUTHORIZATION. <Electronically signed in Other Vendor System> SIGNED BY: NIRANJAN NAPIER MD 10/27/161814 Initial ED EKG: NSR (QTC 497) Rhythm Strip: normal sinus rhythm Departure Departure Time of Disposition: 1849 Disposition: STILL A PATIENT Condition: Stable Clinical Impression Primary Impression: Opiate overdose Secondary Impressions: Benzodiazepine overdose, Unresponsive episode Referrals: AMANDA FRY MD (PCP/Family) Departure Forms: Customer Survey General Discharge Information Admission Note Spoke With: AMANDA FRY MD Documentation of Exam: Documentation of any treatments & extenuating circumstances including Concerns Regarding Discharge (functional status, medication knowledge or non-compliance, living conditions, etc.) that warrant an admission rather than observation: [ICU MONITOR, NARCAN DRIP, SITTER ORDER, MONITOR I/O, CRISIS CONSULT WHEN MEDICALLY STABLE] Critical Care Note Critical Care Note Critical Care Time: 75-104 min
--- NOTE | 2016-10-27 17:10 | NUR ---
0.4 NARCAN WITH NO EFFECT
--- NOTE | 2016-10-27 17:33 | NUR ---
PT TO CT VIA STRETCHER
--- NOTE | 2016-10-27 17:35 | NUR ---
0.4 NARCAN WITH NO EFFECT
--- NOTE | 2016-10-27 17:58 | NUR ---
PT RETURNED FROM CT SCAN AT 1746. REMAINS LETHARGIC. 2MG NARCAN GIVEN WITH EFFECT. PT ATTEMPTING TO GET OOB, BUT REDIRECTABLE. NS RUNNING TO LAC IV
[2016-10-27 17:59] LABS: ABSOLUTE BASOPHIL COUNT 0 /CUMM (0.0-0.2); ABSOLUTE EOSINOPHIL COUNT 0.1 /CUMM (0.0-0.7); ABSOLUTE GRANULOCYTE CT 6.2 /CUMM (1.4-6.5); ABSOLUTE LYMPH COUNT 2.2 /CUMM (1.2-3.4); ABSOLUTE MONOCYTE COUNT 0.7 /CUMM (0.10-0.60); BASOPHIL % 0.5 % (0.0-2.0); EOSINOPHIL % 0.8 % (0-5); GRANULOCYTE % 67.5 % (42.2-75.2); HEMATOCRIT 33.1 % (37-47); MEAN CORPUSCULAR HGB 28.2 PG (27.0-31.0); MEAN CORPUSCULAR HGB CONC 33.1 G/DL (33.0-37.0); MEAN CORPUSCULAR VOLUME 85.2 FL (81.0-99.0); MEAN PLATELET VOLUME 7.2 FL (7.4-10.4); PLATELET COUNT 513 /CUMM (130-400); RBC DISTRIBUTION WIDTH 14.5 % (11.5-14.5); RED BLOOD CELL CT 3.89 /CUMM (4.20-5.40); WHITE BLOOD CELL COUNT 9.2 /CUMM (4.8-10.8)
--- NOTE | 2016-10-27 18:15 | CT SCAN REPORT ---
EXAMINATION: CT HEAD. CT CERVICAL SPINE CLINICAL INFORMATION: Found on ground unresponsive. Evaluate for fracture. COMPARISON: Prior cervical examinations most recent MRI September 2014. Prior CT head exams most recent October 2014 TECHNIQUE: CT scan of the head without contrast with additional coronal reformatted images obtained CT scan of the cervical spine with additional sagittal coronal reformatted images obtained at the acquisition workstation. FINDINGS: CT head: There is no mass hemorrhage or cerebral edema ventricles and basal cisterns are unremarkable. Soft tissues: Normal. Mastoid air cells: Normal. Sinuses: Normal. Cervical spine: There are postop changes related to laminectomy from C3 through C5. I do not see a fracture or acute abnormality. C3-C4: There is grade 1-2 anterolisthesis of C3 on C4. This anterior translation is more prominent than that noted on the prior MRI September 2014. There is severe disc space narrowing at this level. The facets are fused on the left at the C3-C4 level. The facets are fused in the right at the C4-C5 level. There is severe facet arthrosis on the right at the C2-C3 and C3-C4 level. There is moderate facet arthrosis on the left at the C2-C3 level. There is severe degenerative disc changes present at the C4-C5 and C5-C6 and C6-C7 levels with disc space narrowing endplate osteophytes. Emphysematous changes in the lung apices IMPRESSION: CT head: No acute abnormality. No change CT Cervical spine: No acute abnormality. Postsurgical changes as described. Increasing anterolisthesis of C3-C4 compared with the most recent MRI September 2014.
--- NOTE | 2016-10-27 19:21 | NUR ---
PT REMAINS SOMNOLENT POST NARCAN ADMINISTRATION. MORE EASILY AWAKENED THAN EARLIER; HOWEVER, FALLS IMMEDIATELY BACK TO SLEEP. STILL UNABLE TO VERIFY WHAT OR HOW MUCH MEDICATION SHE TOOK RADIOLOGY PHYSICIAN
--- NOTE | 2016-10-27 19:50 | History & Physical ---
General Information and [facility] MD Statement: I have seen and personally examined THELMA VENTURA and documented this H&P. The patient is a 61 year old F who presented with a patient stated chief complaint of [TRAZODONE OVERDOSE]. Source of Information: patient, old records Exam Limitations: clinical condition, poor historian History of Present Illness: Patient is a 61-year-old female with past medical history of chronic back pain, osteoporosis, depression, schizophrenia, lumbar spine surgery with disk excision , hypertension, asthma who was brought in the ED after being found unresponsive at home. Patient was by found unresponsive by her brother in her home this afternoon. Patient apparently lives alone and has a visiting nurse who comes every day and gives her her medications. She has long history of narcotic abuse and has attempted suicide in the past by overdosing. Normally all her medications are kept locked at her house and accessed only by her visiting nurse. However today she got a hold of her medications and overdosed on them. It is not very clear how she unlocked them. Her brother reported that he came to meet her and found the front door locked. He sneaked in through another door and found her on the floor in the kitchen. He called EMS who gave her a dose of Narcan in the field with some response. Patient's vitals were stable and she was brought to the ED. In the ED patient received 0.4 mg Narcan X2 with some response. She continued to be drowsy and went back to slumber and was again given 2mg IV x 2. Finally she was put on Narcan drip by the ER physician. During examination patient appeared awake, alert and oriented 2. She denied any chest pain, shortness of breath, nausea, vomiting, abdominal pain, headache, urinary or bowel symptoms. She denies any seizure-like symptoms, pain in any other part of the body other than back pain which is chronic. Vitals at admission showed a temperature of 97.9, pulse 87, respiration 12, blood pressure 141/60, saturating 99% on room air Labs showed an H&H of 11/33.1, platelet count 513, sodium 132, potassium 4.3, normal LFTs. U tox positive for benzos. UA showed cloudy urine, positive nitrite, small leukocyte esterase, 3-5 WBC, packed bacteria. EKG: Normal sinus rhythm 81 bpm, left anterior fascicular block, T-wave inversion seen in lead V1 and V2, QTC 497(no change from previous EKG) AB.41/31/84/19 CT head and spine: No acute pathology.Increasing anterolisthesis of C3-C4 compared with the most recent MRI September 2014. \ Allergies/Medications Allergies: Coded Allergies: Sulfa (Sulfonamide Antibiotics) (Intermediate, BURNING-PT REPORTS WOUND TURNS GREEN 02/20/16) Home Med list Albuterol Sulfate (Proair Hfa) 90 MCG HFA.AER.AD 2 PUF INH 4 TIMES/DAY NPO RESPIRATORY (Reported) Aspirin (Ecotrin*) 81 MG TABLET.DR 1 TAB PO DAILY HEART (Reported) Bupropion HCl (Wellbutrin Sr) 150 MG TABLET.ER 1 TAB PO BID UNKNOWN (Reported ) Carisoprodol 350 MG TABLET 1 TAB PO TID MUSCLE RELAXER (Reported) Diazepam 10 MG TABLET 1-2 TAB PO AD PRN PRIOR TO PROCEDURE (Reported) Fluticasone/Salmeterol (Advair 250-50 Diskus) 250 MCG-50 MCG/DOSE BLST.W.DEV 1 PUF INH BID RESPIRATORY (Reported) Furosemide 20 MG TABLET 0.5 TAB PO DAILY PRN EDEMA (Reported) Gabapentin (Neurontin) 800 MG TABLET 1 TAB PO TID NERVE PAIN (Reported) Hydroxyzine Pamoate (Vistaril) 50 MG CAPSULE 1 CAP PO 4 TIMES/DAY UNKNOWN ( Reported) Latanoprost (Xalatan) 0.005 % DROPS 1 GTT OPH QHS BOTH EYES (Reported) Linaclotide (Linzess) 145 MCG CAPSULE 1 CAP PO DAILY GI (Reported) Magnesium Oxide (Magnesium) 400 MG CAPSULE 1 CAP PO DAILY SUPPLEMENT ( Reported) Metformin HCl 500 MG TABLET 1 TAB PO QAM DM (Reported) Multivitamin (Multi-Day Vitamins) 1 EACH TABLET 1 TAB PO DAILY SUPPLEMENT ( Reported) Nitroglycerin 0.4 MG TAB.SUBL 1 TAB SL AD PRN CHEST PAIN (Reported) 1st sign of attack; may repeat every 5 minutes until relief; if pain persists after 3 tablets in 15 minutes, prompt medical att Olanzapine (Zyprexa) 5 MG TABLET 1 TAB PO QPM MENTAL HEALTH (Reported) Olanzapine 20 MG TABLET 1 TAB PO QPM MENTAL HEALTH (Reported) [place]-3/Dha/Epa/Fish Oil (Fish Oil 1,000 MG Softgel) 1,000 MG (120 MG-180 MG) CAPSULE 1 CAP PO DAILY SUPPLEMENT (Reported) Omeprazole 40 MG CAPSULE.DR 1 CAP PO BID GI (Reported) Oxycodone HCl/Acetaminophen (Percocet 10-325 MG Tablet) 10 MG-325 MG TABLET 1 TAB PO Q6H PRN PAIN (Reported) Perphenazine/Amitriptyline HCl (Perphen-Amitrip 4 MG-50 MG Tab) 4 MG-50 MG TABLET 1 TAB PO TID MENTAL HEALTH (Reported) Potassium Chloride 10 MEQ TABLET.ER 2 TAB PO DAILY SUPPLEMENT (Reported) Simvastatin (Zocor*) 10 MG TABLET 1 TAB PO DAILY CHOLESTEROL (Reported) Solifenacin Succinate (Vesicare) 5 MG TABLET 1 TAB PO DAILY BLADDER (Reported ) Tiotropium [place] (Spiriva) 18 MCG CAP.W.DEV 1 CAP INH DAILY RESPIRATORY ( Reported) Topiramate (Topamax) 100 MG TABLET 1 TAB PO BID UNKNOWN (Reported) Trazodone HCl 300 MG TABLET 1 TAB PO QPM SLEEP (Reported) Past History Travel History Traveled to [place] past 21 day No Medical History Neurological: NONE EENT: NONE Cardiovascular: hypertension, hyperlipidemia Respiratory: asthma, COPD Gastrointestinal: NONE Hepatic: NONE Renal: NONE Musculoskeletal: NONE, chronic back pain, osteoarthritis Psychiatric: anxiety, bipolar disease, depression, schizophrenia Endocrine: NONE Blood Disorders: NONE Cancer(s): NONE SCIENCE LIAISON/Reproductive: NONE History of MRSA: No History of VRE: No History of CDIFF: No Isolation History: Standard Surgical History Surgical History: NECK SURGERY BACK SURGERY Past Family/Social History Family History Relations & Conditions if any MOTHER Relation not specified for: FH: heart disease Psychosocial History Services at Home: Nursing Functional Ability ADLs Independent: dressing, eating, toileting, bathing. Ambulation: independent IADLs Independent: shopping, housework, finances, food prep, telephone, transportation. Needs Assist: medication admin. Review of Systems Review of Systems Constitutional: Reports: malaise, weakness. EENTM: Reports: no symptoms. Cardiovascular: Reports: no symptoms. Respiratory: Reports: no symptoms. GI: Reports: no symptoms. Genitourinary: Reports: no symptoms. Musculoskeletal: Reports: back pain. Skin: Reports: no symptoms. Neurological/Psychological: Reports: confusion. Hematologic/Endocrine: Reports: no symptoms. Exam & Diagnostic Data Last 24 Hrs of Vital Signs/I&O Vital Signs Date Time Temp Pulse Resp B/P B/P Pulse O2 O2 Flow FiO2 Mean Ox Delivery Rate 10/27 1916 81 20 150/71 100 Nasal 2.0L Cannula 10/27 180 97.8 82 13 132/62 99 Room Air 10/27 1655 97.9 87 12 141/60 99 Room Air Physical Exam General Appearance Alert, Oriented X3, No Acute Distress, CACHECTIC Skin No Rashes, No Breakdown, No Significant Lesion Skin Temp/Moisture Exam: Warm/Dry Sepsis Skin Exam (color): Normal for Ethnicity HEENT Atraumatic, PERRLA, EOMI Neck Supple, No JVD Lymphatic Cervical nl Cardiovascular Regular Rate, Normal S1, Normal S2, No Murmurs Lungs Clear to Auscultation, Normal Air Movement Abdomen Normal Bowel Sounds, Soft, No Tenderness Neurological Normal Gait, Normal Speech, Strength at 5/5 X4 Ext, Normal Tone, Sensation Intact Extremities No Clubbing, No Cyanosis, No Edema, Normal Pulses Vascular Normal Pulses, Pulses Symmetrical Last 24 Hrs of Labs/Jesús: Laboratory Tests 10/27/161909: pH 7.41, pCO2 31 L, pO2 84, HCO3 19 L, ABG O2 Sat (Measured) 96.0, P-50 (Temp Corrected) YES, Carboxyhemoglobin 1.4 L, O2 Concentration % 2L, Temperature 97.8, O2 Delivery Method NC, Phlebotomy Draw Site RIGHT BRACHIAL 10/27/161729: Anion Gap 11, Estimated GFR > 60, BUN/Creatinine Ratio 15.0, Glucose 75, Calcium 9.7, Magnesium 1.7, Total Bilirubin 0.3, AST 17, ALT 38, Alkaline Phosphatase 122, Creatine Kinase 86, Total Protein 6.2 L, Albumin 3.5, Globulin 2.7, Albumin/Globulin Ratio 1.3, CBC w Diff NO MAN DIFF REQ, RBC 3.89 L, MCV 85.2, MCH 28.2, RDW 14.5, MPV 7.2 L, Gran % 67.5, Lymphocytes % 23.5, Monocytes % 7.7 , Eosinophils % 0.8, Basophils % 0.5, Absolute Granulocytes 6.2, Absolute Lymphocytes 2.2, Absolute Monocytes 0.7 H, Absolute Eosinophils 0.1, Absolute Basophils 0, PUBS MCHC 33.1, Serum Alcohol < 10.0 10/27/16 1715: Urine Opiates Screen 1736.00, Methadone Screen 92, Barbiturate Screen < 60, Ur Phencyclidine Scrn < 6.00, Amphetamines Screen 511, U Benzodiazepines Scrn > 800 H, Urine Cocaine Screen < 50, Urine Cannabis Screen 15.60, Urine Color YEL, Urine Clarity CLDY H, Urine pH 6.0, Ur Specific [place] 1.020, Urine Protein NEG, Urine Ketones NEG, Urine Nitrite POS H, Urine Bilirubin NEG, Urine Urobilinogen 0.2, Ur Leukocyte Esterase SMALL H, Ur Microscopic SEDIMENT EXAMINED, Urine RBC RARE, Urine WBC 3-5 H, Ur Epithelial Cells FEW, Urine Bacteria PACKD H, Urine Mucus RARE, Urine Hemoglobin NEG, Urine Glucose NEG Microbiology 10/27 1714 URINE ROUT: Urine Culture - RECD Assessment/Plan Assessment: Patient is a 61-year-old female with past medical history of chronic back pain, osteoporosis, depression, schizophrenia, lumbar spine surgery with disk excision , hypertension, asthma who was brought in the ED after being found unresponsive at home. Patient received 0.4 mg Narcan in the field by EMS with some response In the ED patient received 0.4 mg Narcan X2 with some response. She continued to be drowsy and went back to slumber and was again given 2mg IV x 2. Finally she was put on Narcan drip by the ER physician. During examination patient appeared awake, alert and oriented 2. She denied any chest pain, shortness of breath, nausea, vomiting, abdominal pain, headache, urinary or bowel symptoms. Vitals at admission showed a temperature of 97.9, pulse 87, respiration 12, blood pressure 141/60, saturating 99% on room air Labs showed an H&H of 11/33.1, platelet count 513, sodium 132, potassium 4.3, normal LFTs. U tox positive for benzos. UA showed cloudy urine, positive nitrite, small leukocyte esterase, 3-5 WBC, packed bacteria. AB.41//84/19 EKG: Normal sinus rhythm 81 bpm, left anterior fascicular block, T-wave inversion seen in lead V1 and V2, QTC 497(no change from previous EKG) CT head and spine: No acute pathology.Increasing anterolisthesis of C3-C4 compared with the most recent MRI September 2014. Assessment: * Unresponsiveness due to Trazodone overdose * Suicidal attempt, U tox positive for benzos * Chronic back pain * Osteoporosis * Depression, schizophrenia, * Hypertension * Diabetes Mellitus Plan: * Admit patient to ICU * Neuro checks and vitals every one hour * Sitter/safety monitor * 3 sets of troponins and EKG to rule out ACS * Continue Narcan drip. Can wean off once patient more awake and oriented * 1 mg Ativan when necessary for agitation/withdrawal * IV hydration with normal saline at 75 mL per hour * Passes Bedside swallow evaluation. On CC3 diet * Crisis evaluation /psychiatric consult .We will hold all psychiatric medications for now. * Continue all the home medications * TID Accuchecks, Novolog SC, holding Metformin * Patient will need social work consult * DVT prophylaxis subcutaneous Lovenox * Full code * Mild pain pathway As Ranked By This Provider Problem List: 1. Overdose Core Measures/Miscellaneous Acute Coronary Syndrome ACS Diagnosis: No Cerebrovascular Accident CVA/TIA Diagnosis: No Congestive Heart Failure CHF Diagnosis: No Venous Thromboembolism VTE Risk Factors: Age > 40 [facility] prophylaxis d/t: No contraindications No VTE Pharm Prophylaxis d/t: No contraindications VTE Diagnosis: No VTE Type: NONE VTE Confirmed by (Test): NONE Severe Sepsis Severe Sepsis Present: No Septic Shock Septic Shock Present: No Miscellaneous Documentation Attending Case Discussed With: AMANDA FRY MD Primary Care Physician: AMANDA FRY MD Patient sees these Specialists NONE Level of Patient Care: Critical Care (CRI)
--- NOTE | 2016-10-27 20:49 | NUR ---
PT ADMITTED TO ROOM 113
--- NOTE | 2016-10-27 20:58 | NUR ---
BLOOD DRAWN AND SENT TO LAB SST
--- NOTE | 2016-10-27 21:54 | NUR ---
REPORT TO [facility] CRUM IN ICU. PT TO BE TRANSPORTED TO FLOOR ON TELE BY RN
--- NOTE | 2016-10-27 22:45 | Admission Certification ---
Admission Certification Certification Statement - As attending physician, I certify that at the time of - admission, based on clinical presentation, severity of - symptoms, need for further diagnostic testing and - therapeutic interventions, and risk of adverse outcomes - without in-hospital treatment, in my clinical assessment, - this patient requires an acute hospital stay for a minimum - of two nights or longer. I have also considered psychsocial - factors such as support system, advanced age, financial - issues, cognitive issues, and failed out-patient treatments, - past re-admission history, safety of patient, and lack of - compliance as applicable. Specific rationale supporting this admission is: Change in mental status, benzodiazepine overdose, that needed Narcan and close observation
--- NOTE | 2016-10-27 22:51 | PN- Att Addend ---
Attending Addendum Attending Brief Note 61-year-old white female previous psychiatric history and was found this morning unresponsive at her house and was given Narcan at the field some response to the emergency room in need Narcan and eventual Narcan IV drip to keep her awake patient was admitted to the intensive care unit and she is awake. Knows she is in the hospital, knows my name has a sitter would have psychiatric reevaluation in the morning. Patient able to follow-up leukocytosis with no trouble Laboratory Tests 10/27 191 Blood Gas pH (7.35 - 7.45 PH) 7.41 pCO2 (35 - 45 TORR) 31 L pO2 (80 - 100 TORR) 84 HCO3 (21 - 28 MEQ/L) 19 L ABG O2 Sat (Measured) (>96.0 %) 96.0 P-50 (Temp Corrected) YES Carboxyhemoglobin (1.5 - 5.0 %) 1.4 L O2 Concentration % 2L Temperature (97.0 - 100.0 FARH) 97.8 O2 Delivery Method NC Chemistry Troponin I (< 0.11 ng/ml) < 0.01 Miscellaneous Phlebotomy Draw Site RIGHT BRACHIAL 10/27 10/27 1730 1715 Chemistry Sodium (137 - 145 mmol/L) 132 L Potassium (3.5 - 5.1 mmol/L) 4.3 Chloride (98 - 107 mmol/L) 103 Carbon Dioxide (22 - 30 mmol/L) 18 L Anion Gap (5 - 16) 11 BUN (7 - 17 mg/dL) 9 Creatinine (0.5 - 1.0 mg/dL) 0.6 Estimated GFR (>60 ml/min) > 60 BUN/Creatinine Ratio (7 - 25 %) 15.0 Glucose (65 - 99 mg/dL) 75 Calcium (8.4 - 10.2 mg/dL) 9.7 Magnesium (1.6 - 2.3 mg/dL) 1.7 Total Bilirubin (0.2 - 1.3 mg/dL) 0.3 AST (14 - 36 U/L) 17 ALT (9 - 52 U/L) 38 Alkaline Phosphatase (<127 U/L) 122 Creatine Kinase (30 - 135 U/L) 86 Total Protein (6.3 - 8.2 g/dL) 6.2 L Albumin (3.5 - 5.0 g/dL) 3.5 Globulin (1.9 - 4.2 gm/dL) 2.7 Albumin/Globulin Ratio (1.1 - 2.2 %) 1.3 Hematology CBC w Diff NO MAN DIFF REQ WBC (4.8 - 10.8 /CUMM) 9.2 RBC (4.20 - 5.40 /CUMM) 3.89 L Hgb (12.0 - 16.0 G/DL) 11.0 L Hct (37 - 47 %) 33.1 L MCV (81.0 - 99.0 FL) 85.2 MCH (27.0 - 31.0 PG) 28.2 RDW (11.5 - 14.5 %) 14.5 Plt Count (130 - 400 /CUMM) 513 H MPV (7.4 - 10.4 FL) 7.2 L Gran % (42.2 - 75.2 %) 67.5 Lymphocytes % (20.5 - 51.1 %) 23.5 Monocytes % (1.7 - 9.3 %) 7.7 Eosinophils % (0 - 5 %) 0.8 Basophils % (0.0 - 2.0 %) 0.5 Absolute Granulocytes (1.4 - 6.5 /CUMM) 6.2 Absolute Lymphocytes (1.2 - 3.4 /CUMM) 2.2 Absolute Monocytes (0.10 - 0.60 /CUMM) 0.7 H Absolute Eosinophils (0.0 - 0.7 /CUMM) 0.1 Absolute Basophils (0.0 - 0.2 /CUMM) 0 PUBS MCHC (33.0 - 37.0 G/DL) 33.1 Toxicology Urine Opiates Screen (>2000 NG/ML) 1736.00 Methadone Screen (>300 NG/ML) 92 Barbiturate Screen (>200 NG/ML) < 60 Ur Phencyclidine Scrn (>25 NG/ML) < 6.00 Amphetamines Screen (>1000 NG/ML) 511 U Benzodiazepines Scrn (>200 NG/ML) > 800 H Urine Cocaine Screen (>300 NG/ML) < 50 Urine Cannabis Screen (>50 NG/ML) 15.60 Serum Alcohol (<10 MG/DL) < 10.0 Urines Urine Color (YEL,AMB,STR) YEL Urine Clarity (CLEAR) CLDY H Urine pH (5.0 - 8.0) 6.0 Ur Specific [place] (1.001 - 1.035) 1.020 Urine Protein (NEG,<30 MG/DL) NEG Urine Ketones (NEG) NEG Urine Nitrite (NEG) POS H Urine Bilirubin (NEG) NEG Urine Urobilinogen (0.1 - 1.0 EU/dl) 0.2 Ur Leukocyte Esterase (NEG) SMALL H Ur Microscopic SEDIMENT EXAMINED Urine RBC (0 - 5 /HPF) RARE Urine WBC (0 - 2 /HPF) 3-5 H Ur Epithelial Cells (NONE,FEW) FEW Urine Bacteria (NEG/NONE) PACKD H Urine Mucus (FEW,NONE) RARE Urine Hemoglobin (NEG) NEG Urine Glucose (N MG/DL) NEG Alcohol level less than 10 Benzodiazepine screen more than 800 OPmorphine screen 1736.00
--- NOTE | 2016-10-27 23:30 | NUR ---
PT DROWSY AROUABLE HAS PERIODS OF WAKEFULNESS. MD AT BEDSIDE AND SWALLOW EVAL COMPLETED. PT CACHETIC AND STATES SHE HAS HAD UNINTENTIONAL WIEGHT LOSS. NUTRITIONAL EVAL PLACED. PT ON MONITOR, VSS, SITTER IN PLACE FOR SI. PT SKIN WITH SMALL OPEN AREA TO LEFT COCCYX MEASURING 2CMx1.5CM. PT ON 2L NC LUNGS CLEAR BUT DEMINISHED, 100% SAT ON 2L NC. PT NSR ON THE MONITOR.
[2016-10-28 04:28] LABS: ABSOLUTE BASOPHIL COUNT 0 /CUMM (0.0-0.2); ABSOLUTE EOSINOPHIL COUNT 0.1 /CUMM (0.0-0.7); ABSOLUTE GRANULOCYTE CT 6.9 /CUMM (1.4-6.5); ABSOLUTE LYMPH COUNT 1.7 /CUMM (1.2-3.4); ABSOLUTE MONOCYTE COUNT 0.6 /CUMM (0.10-0.60); BASOPHIL % 0.3 % (0.0-2.0); EOSINOPHIL % 0.8 % (0-5); GRANULOCYTE % 74.2 % (42.2-75.2); HEMATOCRIT 32.1 % (37-47); MEAN CORPUSCULAR HGB 28.1 PG (27.0-31.0); MEAN CORPUSCULAR HGB CONC 32.8 G/DL (33.0-37.0); MEAN CORPUSCULAR VOLUME 85.6 FL (81.0-99.0); MEAN PLATELET VOLUME 7.2 FL (7.4-10.4); PLATELET COUNT 497 /CUMM (130-400); RBC DISTRIBUTION WIDTH 14.7 % (11.5-14.5); RED BLOOD CELL CT 3.75 /CUMM (4.20-5.40); WHITE BLOOD CELL COUNT 9.3 /CUMM (4.8-10.8)
[2016-10-28 08:00] VITALS: BP 150/73
--- NOTE | 2016-10-28 08:42 | PN- Housestaff ---
Subjective Follow-up For: Unresponsiveness 2/2 trazodone overdose Suicide attempt Chronic LBP Depression, schizophrenia Complaints: no complaints Tele-Events Since Last Visit: NSR, no overnight telemetry events. Subjective: Patient seen and examined at bedside this AM. She is completely alert and oriented and offers no complaints. Specifically she denies fever, chills, chest pain, shortness of breath, lethargy, weakness or dysuria/foul smelling urine. Vital signs since admission: T 97.4-99.2, HR 72-84, BP 134-171/53-73, O2 98-100% on 2 L NC. Total input: 1058 cc Total output: 1240 cc Review of Systems Constitutional: Denies: chills, fever, malaise, weakness. EENTM: Denies: double vision, visual changes, hearing changes. Cardiovascular: Denies: chest pain, palpitations. Respiratory: Denies: cough, short of breath. Gastrointestinal: Denies: abdominal pain. Genitourinary: Denies: discharge, dysuria, frequency, pain. Musculoskeletal: Denies: joint pain. Skin: Denies: rash. Neurological/Psychological: Denies: anxiety, confusion, headache, numbness, paresthesia. Hematologic/Endocrine: Denies: bruising, bleeding. Immunologic/Allergic: Denies: splenectomy. Objective Last 24 Hrs of Vital Signs/I&O Vital Signs Date Time Temp Pulse Resp B/P B/P Pulse O2 O2 Flow FiO2 Mean Ox Delivery Rate 10/28 0800 98.7 82 22 150/73 100 Nasal 2.0L Cannula 10/28 0732 99 Nasal 2.0L Cannula 10/28 0400 100 Nasal 2.0L Cannula 10/27 2300 100 Nasal 2.0L Cannula 10/27 2120 98.7 83 14 149/71 100 Room Air 10/27 2020 98.1 75 14 132/69 98 Room Air 10/27 1917 81 20 150/71 100 Nasal 2.0L Cannula 10/27 1805 97.8 82 13 132/62 99 Room Air 10/27 1655 97.9 87 12 141/60 99 Room Air Intake & Output 10/28 1600 10/28 0800 10/28 0000 Intake Total 327.4 1196 1000 Output Total 200 1180 1350 Balance 127.4 16 -350 Intake, IV 87.4 996 1000 Intake, Oral 240 200 Number 0 Bowel Movements Output, Stool 0 Output, Urine 200 1180 1350 Patient 100 lb 99 lb 15.99 oz Weight Weight Reported by Patient Reported by Patient Measurement Method Physical Exam General Appearance: Alert, Oriented X3, Cooperative Skin: No Rashes, No Significant Lesion Skin Temp/Moisture Exam: Warm/Dry HEENT: Atraumatic, PERRLA, Mucous Membr. moist/pink Neck: Supple, No JVD Lymphatic: Cervical nl Cardiovascular: Regular Rate, Normal S1, Normal S2 Lungs: Clear to Auscultation, Normal Air Movement Abdomen: Normal Bowel Sounds, Soft, No Tenderness Neurological: Normal Speech, Strength at 5/5 X4 Ext, Normal Tone Extremities: No Clubbing, No Cyanosis, No Edema Vascular: Pulses Symmetrical Current Medications: Current Medications Sig/Kobe Start time Last Medication Dose Route Stop Time Status Admin Acetaminophen 325 MG Q6P PRN 10/27 1945 AC PO Albuterol Sulfate 2 PUF 4 TIMES/DAY NPO 10/28 1000 AC 10/28 INH 0926 Aspirin Buffered 81 MG DAILY 10/28 1000 AC 10/28 PO 0925 Atorvastatin Calcium 10 MG 1700 10/28 1700 AC PO Enoxaparin Sodium 0 .STK-MED ONE 10/27 2032 DC SC Enoxaparin Sodium 40 MG DAILY 10/27 1934 AC 10/28 SC 0925 Fluticasone 2 PUF BID 10/27 2200 AC 10/28 Propionate INH 0926 Furosemide 10 MG DAILY PRN 10/27 2130 AC PO Insulin Aspart 0 TIDAC 10/28 0800 AC SC Latanoprost 1 GTT 2200 10/27 2230 AC 10/27 OPH 2346 Lorazepam 1 MG Q1 NEEDED PRN 10/27 2100 AC IV Lorazepam 1 MG Q2P PRN 10/27 2030 DC IV Magnesium Oxide 400 MG DAILY 10/28 1000 AC 10/28 PO 0925 Magnesium Oxide 400 MG ONE ONE 10/28 0800 CAN PO 10/28 0801 Magnesium Oxide 400 MG ONE ONE 10/28 0600 DC 10/28 PO 10/28 0601 0640 Naloxone HCl 20 MG CONTINOUS INFUSION 10/28 0430 DC 10/28 Dextrose/Water 500 ML IV 0514 Naloxone HCl 20 MG ONCE ONE 10/27 1915 DC 10/27 Dextrose/Water 500 ML IV 10/27 191 1954 Naloxone HCl 2 MG ONCE ONE 10/27 1845 DC 10/27 IV 10/27 1846 1919 Naloxone HCl 4 MG ONCE ONE 10/27 1845 CAN Dextrose/Water 1,000 ML IV 10/27 1846 Naloxone HCl 0 .STK-MED ONE 10/27 1751 DC .ROUTE Naloxone HCl 0 .STK-MED ONE 10/27 1751 DC .ROUTE Naloxone HCl 2 MG ONCE ONE 10/27 1745 DC 10/27 IV 10/27 1746 1752 Naloxone HCl 0 .STK-MED ONE 10/27 1732 DC .ROUTE Naloxone HCl 0.4 MG ONCE ONE 10/27 1730 DC 10/27 IV 10/27 1731 1732 Naloxone HCl 0.4 MG ONCE ONE 10/27 1700 DC 10/27 IV 10/27 1701 1704 Naloxone HCl 0 .STK-MED ONE 10/27 1649 DC .ROUTE Omeprazole 40 MG DAILY AC 10/28 0700 AC 10/28 PO 0638 Oxycodone HCl 5 MG Q6P PRN 10/27 194 AC PO Oxycodone/ 2 TAB Q6P PRN 10/27 2130 AC Acetaminophen PO Oxycodone/ 2 TAB Q6P PRN 10/27 194 AC Acetaminophen PO Sodium Chloride 1,000 ML Q13H 10/27 2030 AC 10/27 IV 2309 Sodium Chloride 1,000 ML BOLUS ONE 10/27 1700 DC 10/27 IV 10/27 1759 1704 Solifenacin 5 MG DAILY 10/28 1000 AC 10/28 PO 0925 Tiotropium [place] 1 PUF DAILY 10/28 1000 AC 10/28 INH 0925 Topiramate 100 MG BID 10/28 1000 CAN PO Last 24 Hrs of Lab/Jesús Results Last 24 Hrs of Labs/Mics: Laboratory Tests 10/28/16 0830: Troponin I < 0.01 10/28/16 0400: Anion Gap 7, Estimated GFR > 60, Glucose 88, Calcium 8.4, Phosphorus 4.0, Magnesium 1.6, Total Bilirubin 0.2, AST 11 L, ALT 36, Albumin 2.5 L, CBC w Diff NO MAN DIFF REQ, RBC 3.75 L, MCV 85.6, MCH 28.1, RDW 14.7 H, MPV 7.2 L, Gran % 74.2, Lymphocytes % 18.8 L, Monocytes % 5.9, Eosinophils % 0.8, Basophils % 0.3, Absolute Granulocytes 6.9 H, Absolute Lymphocytes 1.7, Absolute Monocytes 0.6, Absolute Eosinophils 0.1, Absolute Basophils 0, PUBS MCHC 32.8 L 10/28/16 0210: Troponin I < 0.01 10/27/162049: Troponin I < 0.01 10/27/16 1910: pH 7.41, pCO2 31 L, pO2 84, HCO3 19 L, ABG O2 Sat (Measured) 96.0, P-50 (Temp Corrected) YES, Carboxyhemoglobin 1.4 L, O2 Concentration % 2L, Temperature 97.8, O2 Delivery Method NC, Phlebotomy Draw Site RIGHT BRACHIAL 10/27/161729: Anion Gap 11, Estimated GFR > 60, BUN/Creatinine Ratio 15.0, Glucose 75, Calcium 9.7, Magnesium 1.7, Total Bilirubin 0.3, AST 17, ALT 38, Alkaline Phosphatase 122, Creatine Kinase 86, Total Protein 6.2 L, Albumin 3.5, Globulin 2.7, Albumin/Globulin Ratio 1.3, CBC w Diff NO MAN DIFF REQ, RBC 3.89 L, MCV 85.2, MCH 28.2, RDW 14.5, MPV 7.2 L, Gran % 67.5, Lymphocytes % 23.5, Monocytes % 7.7 , Eosinophils % 0.8, Basophils % 0.5, Absolute Granulocytes 6.2, Absolute Lymphocytes 2.2, Absolute Monocytes 0.7 H, Absolute Eosinophils 0.1, Absolute Basophils 0, PUBS MCHC 33.1, Serum Alcohol < 10.0 10/27/16 1715: Urine Opiates Screen 1736.00, Methadone Screen 92, Barbiturate Screen < 60, Ur Phencyclidine Scrn < 6.00, Amphetamines Screen 511, U Benzodiazepines Scrn > 800 H, Urine Cocaine Screen < 50, Urine Cannabis Screen 15.60, Urine Color YEL, Urine Clarity CLDY H, Urine pH 6.0, Ur Specific [place] 1.020, Urine Protein NEG, Urine Ketones NEG, Urine Nitrite POS H, Urine Bilirubin NEG, Urine Urobilinogen 0.2, Ur Leukocyte Esterase SMALL H, Ur Microscopic SEDIMENT EXAMINED, Urine RBC RARE, Urine WBC 3-5 H, Ur Epithelial Cells FEW, Urine Bacteria PACKD H, Urine Mucus RARE, Urine Hemoglobin NEG, Urine Glucose NEG Microbiology 10/27 2244 UPPER RESP: Surveillance Culture - RECD 10/27 2244 GI: Surveillance Culture - RECD 10/27 1715 URINE ROUT: Urine Culture - RES GRAM NEGATIVE RODS Orders Radiology Findings: CT Head: IMPRESSION: CT head: No acute abnormality. No change CT Cervical spine: No acute abnormality. Postsurgical changes as described. Increasing anterolisthesis of C3-C4 compared with the most recent MRI September 2014. Assessment/Plan Assessment: Ms. Chavez is a pleasant 61 year old female with PMH chronic low back pain, osteoporosis, depression, schizophrenia, prior suicide attempt by overdose , lumbar spine disk excision, hypertension and asthma who was brought to the [place] ED after being found unresponsive at home by her brother. Of note, patient has a visiting nurse who administers her daily medications which are normally locked away. She was however able to access these and overdose. In the ED: Vital signs showed T 97.9, HR 87, RR 12, BP 141/60 and O2 sat 99% on RA. Patient received 0.4 mg narcan x 2 followed by 2 mg IV x 2 after which she was started on a narcan drip with good response. Labs showed: H&H of 11/33.1, Plt 513, Na 132, K 4.3, normal LFTs. Utox positive for benzos. UA showed cloudy urine, positive nitrite, small leukocyte esterase, 3-5 WBC, packed bacteria. EKG: NSR, HR 81, LAFB, T-wave inversion in leads V1 and V2, QTC 497 (no change from previous EKG). CT head and spine: No acute pathology. Patient is currently admitted to the ICU and the following is the management: 1. Unresponsiveness 2/2 trazodone overdose in suicide attempt * Continue 1:1 sitter/safety monitor * Vitals Q1H, contine with neurochecks * Patient previously on narcan drip which has been discontinued as patient doing extremely well, AAOx3, no signs of somnolence * Ativan 1 mg Q1 PRN agitation/hallucination/irritability * Continue gentle hydration with NS at 75 cc/h * ACS ruled out with trop/ekg negative x 3 * F/U social work consult * F/U psych/crisis consult 2. Depression, schizophrenia * Will confirm CMR today and hold all psychotrops pending psych eval * Discuss with psych about reintroducing home meds 3. HTN, HLD * Continue lipitor 10 mg PO 1700 4. DM * NSS TIDAC * Accuchecks TIDACHS * Patient passed bedside swallow, continue CC3 diet 5. Chronic low back pain * Mild pain management with tylenol tab PO Q6P * Roxicodone 5 mg PO Q6P for moderate pain * 2 tab percocet Q6P for severe pain FULL CODE DVTP: SC Lovenox Diet: CC3 Mild to severe pain pathway Problem List: 1. Benzodiazepine overdose 2. Overdose 3. Unresponsive episode 4. Medication side effect 5. Depression 6. Full code status Pain Ratin Pain Location: N/A Pain Goal: Remain pain free Pain Plan: Mild pain pathway PRN Tomorrow's Labs & Rationales: CBC (anemia) ICU bundle (hyponatremia, hyperchloremiam borderline low Mag)
--- NOTE | 2016-10-28 13:01 | PN- Att Addend ---
Attending Addendum Attending Brief Note Patient awake mental status back to baseline. Has a sitter in the room. Vital signs are stable no fever. Tolerating the diet okay. Psych evaluation will be done today. Patient stable enough to stop the drip and transferred to the medical floor and or the psychiatric inpatient unit Current Medications Sig/Kobe Start time Last Medication Dose Route Stop Time Status Admin Acetaminophen 325 MG Q6P PRN 10/27 1945 AC PO Albuterol Sulfate 2 PUF 4 TIMES/DAY NPO 10/28 1000 AC 10/28 INH 0926 Aspirin Buffered 81 MG DAILY 10/28 1000 AC 10/28 PO 0925 Atorvastatin Calcium 10 MG 1700 10/28 1700 AC PO Enoxaparin Sodium 0 .STK-MED ONE 10/27 2032 DC SC Enoxaparin Sodium 40 MG DAILY 10/27 1934 AC 10/28 SC 0925 Fluticasone 2 PUF BID 10/27 2200 AC 10/28 Propionate INH 0926 Furosemide 10 MG DAILY PRN 10/27 2130 AC PO Insulin Aspart 0 TIDAC 10/28 0800 AC SC Latanoprost 1 GTT 0 10/27 2230 AC 10/27 OPH 2346 Lorazepam 1 MG Q1 NEEDED PRN 10/27 2100 AC IV Lorazepam 1 MG Q2P PRN 10/27 2030 DC IV Magnesium Oxide 400 MG DAILY 10/28 1000 AC 10/28 PO 0925 Magnesium Oxide 400 MG ONE ONE 10/28 0800 CAN PO 10/28 0801 Magnesium Oxide 400 MG ONE ONE 10/28 0600 DC 10/28 PO 10/28 0601 0640 Naloxone HCl 20 MG CONTINOUS INFUSION 10/28 0430 DC 10/28 Dextrose/Water 500 ML IV 0514 Naloxone HCl 20 MG ONCE ONE 10/27 1915 DC 10/27 Dextrose/Water 500 ML IV 10/27 191 1954 Naloxone HCl 2 MG ONCE ONE 10/27 1845 DC 10/27 IV 10/27 184 1919 Naloxone HCl 4 MG ONCE ONE 10/27 184 CAN Dextrose/Water 1,000 ML IV 10/27 184 Naloxone HCl 0 .STK-MED ONE 10/27 175 DC .ROUTE Naloxone HCl 0 .STK-MED ONE 10/27 1751 DC .ROUTE Naloxone HCl 2 MG ONCE ONE 10/27 1745 DC 10/27 IV 10/27 174 175 Naloxone HCl 0 .STK-MED ONE 10/27 1732 DC .ROUTE Naloxone HCl 0.4 MG ONCE ONE 10/27 1730 DC 10/27 IV 10/27 1731 1732 Naloxone HCl 0.4 MG ONCE ONE 10/27 1700 DC 10/27 IV 10/27 1701 1704 Naloxone HCl 0 .STK-MED ONE 10/27 1649 DC .ROUTE Omeprazole 40 MG DAILY AC 10/28 0700 AC 10/28 PO 0638 Oxycodone HCl 5 MG Q6P PRN 10/27 194 AC PO Oxycodone/ 2 TAB Q6P PRN 10/27 2130 AC Acetaminophen PO Oxycodone/ 2 TAB Q6P PRN 10/27 194 AC Acetaminophen PO Sodium Chloride 1,000 ML Q13H 10/27 2030 AC 10/28 IV 1214 Sodium Chloride 1,000 ML BOLUS ONE 10/27 1700 DC 10/27 IV 10/27 1759 1704 Solifenacin 5 MG DAILY 10/28 1000 AC 10/28 PO 0925 Tiotropium [place] 1 PUF DAILY 10/28 1000 AC 10/28 INH 0925 Topiramate 100 MG BID 10/28 1000 CAN PO Laboratory Tests 10/28/16 0830: Troponin I < 0.01 10/28/16 0400: Anion Gap 7, Estimated GFR > 60, Glucose 88, Calcium 8.4, Phosphorus 4.0, Magnesium 1.6, Total Bilirubin 0.2, AST 11 L, ALT 36, Albumin 2.5 L, CBC w Diff NO MAN DIFF REQ, RBC 3.75 L, MCV 85.6, MCH 28.1, RDW 14.7 H, MPV 7.2 L, Gran % 74.2, Lymphocytes % 18.8 L, Monocytes % 5.9, Eosinophils % 0.8, Basophils % 0.3, Absolute Granulocytes 6.9 H, Absolute Lymphocytes 1.7, Absolute Monocytes 0.6, Absolute Eosinophils 0.1, Absolute Basophils 0, PUBS MCHC 32.8 L 10/28/16 0210: Troponin I < 0.01 10/27/162049: Troponin I < 0.01 10/27/16 1910: pH 7.41, pCO2 31 L, pO2 84, HCO3 19 L, ABG O2 Sat (Measured) 96.0, P-50 (Temp Corrected) YES, Carboxyhemoglobin 1.4 L, O2 Concentration % 2L, Temperature 97.8, O2 Delivery Method NC, Phlebotomy Draw Site RIGHT BRACHIAL 10/27/16 1730: Anion Gap 11, Estimated GFR > 60, BUN/Creatinine Ratio 15.0, Glucose 75, Calcium 9.7, Magnesium 1.7, Total Bilirubin 0.3, AST 17, ALT 38, Alkaline Phosphatase 122, Creatine Kinase 86, Total Protein 6.2 L, Albumin 3.5, Globulin 2.7, Albumin/Globulin Ratio 1.3, CBC w Diff NO MAN DIFF REQ, RBC 3.89 L, MCV 85.2, MCH 28.2, RDW 14.5, MPV 7.2 L, Gran % 67.5, Lymphocytes % 23.5, Monocytes % 7.7 , Eosinophils % 0.8, Basophils % 0.5, Absolute Granulocytes 6.2, Absolute Lymphocytes 2.2, Absolute Monocytes 0.7 H, Absolute Eosinophils 0.1, Absolute Basophils 0, PUBS MCHC 33.1, Serum Alcohol < 10.0 10/27/161714: Urine Opiates Screen 1736.00, Methadone Screen 92, Barbiturate Screen < 60, Ur Phencyclidine Scrn < 6.00, Amphetamines Screen 511, U Benzodiazepines Scrn > 800 H, Urine Cocaine Screen < 50, Urine Cannabis Screen 15.60, Urine Color YEL, Urine Clarity CLDY H, Urine pH 6.0, Ur Specific [place] 1.020, Urine Protein NEG, Urine Ketones NEG, Urine Nitrite POS H, Urine Bilirubin NEG, Urine Urobilinogen 0.2, Ur Leukocyte Esterase SMALL H, Ur Microscopic SEDIMENT EXAMINED, Urine RBC RARE, Urine WBC 3-5 H, Ur Epithelial Cells FEW, Urine Bacteria PACKD H, Urine Mucus RARE, Urine Hemoglobin NEG, Urine Glucose NEG Microbiology Date/Time Procedure - Status Source Growth 10/27 2244 Surveillance Culture - RECD UPPER RESP 10/27 2244 Surveillance Culture - RECD GI 10/27 1714 Urine Culture - RES URINE ROUT GRAM NEGATIVE RODS Vital Signs Date Time Temp Pulse Resp B/P B/P Pulse O2 O2 Flow FiO2 Mean Ox Delivery Rate 10/28 0800 98.7 82 22 150/73 100 Nasal 2.0L Cannula 10/28 0732 99 Nasal 2.0L Cannula Intake & Output 10/28 1600 Intake Total 567.4 Output Total 500 Balance 67.4 Intake, IV 87.4 Intake, Oral 480 Number 1 Bowel Movements Output, Stool 0 Output, Urine 500
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
--- NOTE | 2016-10-28 14:11 | Incdntl Nt Psy ---
Incidental Note Notation: If mentation remains clear please start the below on 10/29/16: Gabapentin 800 mg tab 3 times a day Trazodone 300 mg daily at bedtime Perphenazine-amitriptyline 4-50 mg tablet three times a day Wellbutrin SR 150 mg twice a day Zyprexa 25 mg daily at bedtime
[2016-10-28] MEDS ORDERED: BUPROPION HCL100 M2 PO (14:28)
[2016-10-28] MEDS ORDERED: BUPROPION HCL200 M2 PO (14:32)
[2016-10-28] MEDS ORDERED: METFORMIN HCL500 M4 PO (14:36)
[2016-10-28 16:00] VITALS: BP 150/66
--- NOTE | 2016-10-28 17:29 | NUR ---
@1600-TOOK OVER CARE OF PT. PT ALERT AND ORIENTED. VSS. GENMED. HOLD. C/O GEN BODY ACHES AND BLE PAIN. MEDICATED WITH PRN PERCOCET. NOTED TO BE ON RA, LUNGS CLEAR. DENIES SOB. O2SAT 985. NO GI/ DISTRESS NOTED. OPEN WOUND NOTED TO L BUTTOCK. DISCOLORED AREA NOTED TO R BUTTOCK. SIZEWISE ORD AT THIS TIME. PER SKIN MAN-WOUND CONSULT PLACED. NS INFUSNG AT 75ML/HR. CONT TO MONITOR CLOSELY. CALL LOZANO WITHIN REACH.
--- NOTE | 2016-10-28 17:41 | NUR ---
Wound Care Assessment: Patient presents with alterations in skin integrity that were present on admission. Left buttock wound measures 2 X 1.7cm, presumed stage 2 pressure injury, wound bed is pale pink and moist with no s/s of infection. Periwound appears with minimal areas of excoriation. R. buttock presents as a healed area presumed stage 2 which measures 0.5 X 0.5cm, Light pink and color with almost complete epithelialization. Wounds are "kissing ulcers" and mirror each other. Patient reports a decrease in mobility and activity after her brother . Impression: Stage 2 pressure injuries to bilateral buttocks Recommendations: Clease wounds with normal saline and pat dry. Please apply duoderm to area and change every 3-5 days and prn. Please place patient on a catergory 2 mattress and obtain a nutrition consult. Encourage frequent turning and repostioning. Please follow all additional pressure injury guidelines.
[2016-10-28 18:20] VITALS: BP 142/52
--- NOTE | 2016-10-28 18:25 | NUR ---
NURSING NOTE: PT ARRIVED TO FLOOR VIA WHEELCHAIR. PT A&O, VSS CHARTED. IVF INFUSING. DUADERM NOTED TO COCCYX. SIZE WIZE BED ON ORDER. PT ORIENTED TO ROOM AND CALL LOZANO.
--- NOTE | 2016-10-28 20:02 | NUR ---
Referral received yesterday via electronic surgical orderly. This patient is a 61 year old female, admitted to the hospital aftr a benzo. overdose. Full assessment to follow; will collaborate with psychiatry.
[2016-10-28 22:44] VITALS: BP 118/56
--- NOTE | 2016-10-29 07:01 | PN- Housestaff ---
Subjective Follow-up For: trazodone overdose Subjective: pt was seen today, she was comfortably sitting on the chair by the window. she is calm but her thought process is off. when asked why the patient is admitted to the hospital, she reports "i took an extra pill because i want the long hair hippy who needs a haircut to get away from my apartment, there is only space for my cat and I". she is not able to convince me of the relevance of the 2 events. she reports chronic leg pain, that is improved with alps. she reports she usually gets leg pain when it is raining, but she appears confused why she is getting it when it is ondina and warm out. she denies SI. after discussing with psych, they are recommending IOP and continue home meds. home meds have been restarted Review of Systems Constitutional: Reports: see HPI. Objective Last 24 Hrs of Vital Signs/I&O Vital Signs Date Time Temp Pulse Resp B/P B/P Pulse O2 O2 Flow FiO2 Mean Ox Delivery Rate 10/29 0730 98.3 90 18 118/84 98 Room Air 10/28 2244 98.6 76 20 118/56 94 Room Air 10/28 1820 99.2 88 18 142/52 98 Room Air 10/28 1600 98.3 76 18 150/66 98 Room Air Intake & Output 10/29 1600 10/29 0800 10/29 0000 Intake Total 900 600 Output Total Balance 900 600 Intake, IV 600 300 Intake, Oral 300 300 Physical Exam General Appearance: Alert, Oriented X3, Cooperative, No Acute Distress HEENT: Atraumatic Cardiovascular: Regular Rate, Normal S1, Normal S2, No Murmurs Lungs: Clear to Auscultation, Normal Air Movement Abdomen: Normal Bowel Sounds, Soft, No Tenderness Extremities: No Edema Current Medications: Current Medications Sig/Kobe Start time Last Medication Dose Route Stop Time Status Admin Acetaminophen 325 MG Q6P PRN 10/27 1945 AC 10/29 PO 1040 Albuterol Sulfate 2 PUF 4 TIMES/DAY NPO PRN 10/29 0832 AC INH Albuterol Sulfate 2 PUF 4 TIMES/DAY NPO 10/28 1000 DC 10/28 INH 2052 Amitriptyline HCl 50 MG TID 10/29 1600 AC PO Aspirin Buffered 81 MG DAILY 10/28 1000 AC 10/29 PO 0836 Atorvastatin Calcium 10 MG 1700 10/28 1700 AC 10/28 PO 1631 Bupropion HCl 150 MG BID 10/29 1052 AC PO Enoxaparin Sodium 40 MG DAILY 10/27 1934 AC 10/29 SC 0837 Fluticasone 2 PUF BID 10/27 2200 AC 10/29 Propionate INH 0838 Furosemide 10 MG DAILY PRN 10/27 2130 AC PO Gabapentin 800 MG Q8 10/29 1400 AC PO Insulin Aspart 0 TIDAC 10/28 0800 AC SC Latanoprost 1 GTT 10/27 2230 AC 10/27 OPH 2346 Lorazepam 1 MG Q1 NEEDED PRN 10/27 2100 DC IV Magnesium Oxide 400 MG DAILY 10/28 1000 AC 10/29 PO 0836 Olanzapine 25 MG AT BEDTIME 10/29 220 AC PO Omeprazole 40 MG DAILY AC 10/28 0700 AC 10/29 PO 0651 Oxycodone HCl 5 MG Q6P PRN 10/27 194 AC 10/29 PO 1039 Oxycodone/ 2 TAB Q6P PRN 10/27 213 AC Acetaminophen PO Oxycodone/ 2 TAB Q6P PRN 10/27 194 AC 10/29 Acetaminophen PO 0832 Perphenazine 4 MG TID 10/29 1600 AC PO Sodium Chloride 1,000 ML Q13H 10/27 2030 DC 10/29 IV 0119 Solifenacin 5 MG DAILY 10/28 1000 AC 10/29 PO 0836 Tiotropium [place] 1 PUF DAILY 10/28 1000 AC 10/29 INH 0838 Trazodone HCl 300 MG AT BEDTIME 10/29 2200 AC PO Last 24 Hrs of Lab/Jesús Results Last 24 Hrs of Labs/Mics: Laboratory Tests 10/29/16 0630: Anion Gap 10, Estimated GFR > 60, Glucose 86, Calcium 9.2, Phosphorus 4.0, Magnesium 1.7, Total Bilirubin 0.3, AST 15, ALT 34, Albumin 3.0 L, CBC w Diff NO MAN DIFF REQ, RBC 4.07 L, MCV 85.2, MCH 27.8, RDW 14.6 H, MPV 7.4, Gran % 72.0, Lymphocytes % 19.5 L, Monocytes % 7.9, Eosinophils % 0.3, Basophils % 0.3 , Absolute Granulocytes 6.4, Absolute Lymphocytes 1.7, Absolute Monocytes 0.7 H , Absolute Eosinophils 0, Absolute Basophils 0, PUBS MCHC 32.7 L Assessment/Plan Assessment: Ms. Chavez is a pleasant 61 year old female with PMH chronic low back pain, osteoporosis, depression, schizophrenia, prior suicide attempt by overdose , lumbar spine disk excision, hypertension and asthma who was brought to the [facility] ED after being found unresponsive at home by her brother. Of note, patient has a visiting nurse who administers her daily medications which are normally locked away. She was however able to access these and overdose. In the ED: Vital signs showed T 97.9, HR 87, RR 12, BP 141/60 and O2 sat 99% on RA. Patient received 0.4 mg narcan x 2 followed by 2 mg IV x 2 after which she was started on a narcan drip with good response. Labs showed: H&H of 11/33.1, Plt 513, Na 132, K 4.3, normal LFTs. Utox positive for benzos. UA showed cloudy urine, positive nitrite, small leukocyte esterase, 3-5 WBC, packed bacteria. EKG: NSR, HR 81, LAFB, T-wave inversion in leads V1 and V2, QTC 497 (no change from previous EKG). CT head and spine: No acute pathology. Patient was managed in the ICU while she was on narcan drip, and subsequently transferred to for further management and discharge planning. 1. Unresponsiveness 2/2 trazodone overdose in suicide attempt * Sitter discontinued * Patient previously on narcan drip which has been discontinued as patient doing extremely well, AAOx3, no signs of somnolence * Ativan 1 mg Q1 PRN agitation/hallucination/irritability discontinued * NS at 75 cc/h discontinued * ACS ruled out with trop/ekg negative x 3 * F/U social work consult * F/U psych/crisis consult - IOP f/u friday 11/03 at 3pm 2. Depression, schizophrenia * Continue home meds 3. HTN, HLD * Continue lipitor 10 mg PO 1700 4. DM * NSS TIDAC * Accuchecks TIDACHS * Patient passed bedside swallow, continue CC3 diet 5. Chronic low back pain * Mild pain management with tylenol tab PO Q6P * Roxicodone 5 mg PO Q6P for moderate pain * 2 tab percocet Q6P for severe pain FULL CODE DVTP: SC Lovenox Diet: CC3 Mild to severe pain pathway Problem List: 1. Overdose Pain Ratin Pain Location: leg pain Pain Goal: Pain 7 or less Pain Plan: mild pp Tomorrow's Labs & Rationales: none DVT/Prophylaxis: mechanical, pharmacological
[2016-10-29 07:30] VITALS: BP 118/84
[2016-10-29 08:03] LABS: ABSOLUTE BASOPHIL COUNT 0 /CUMM (0.0-0.2); ABSOLUTE EOSINOPHIL COUNT 0 /CUMM (0.0-0.7); ABSOLUTE GRANULOCYTE CT 6.4 /CUMM (1.4-6.5); ABSOLUTE LYMPH COUNT 1.7 /CUMM (1.2-3.4); ABSOLUTE MONOCYTE COUNT 0.7 /CUMM (0.10-0.60); BASOPHIL % 0.3 % (0.0-2.0); EOSINOPHIL % 0.3 % (0-5); HEMATOCRIT 34.7 % (37-47); MEAN CORPUSCULAR HGB 27.8 PG (27.0-31.0); MEAN CORPUSCULAR HGB CONC 32.7 G/DL (33.0-37.0); MEAN CORPUSCULAR VOLUME 85.2 FL (81.0-99.0); MEAN PLATELET VOLUME 7.4 FL (7.4-10.4); PLATELET COUNT 544 /CUMM (130-400); RBC DISTRIBUTION WIDTH 14.6 % (11.5-14.5); RED BLOOD CELL CT 4.07 /CUMM (4.20-5.40); WHITE BLOOD CELL COUNT 8.9 /CUMM (4.8-10.8)
--- NOTE | 2016-10-29 09:07 | PN- Att Addend ---
Attending Addendum Attending Brief Note Patient looking and feeling better she's out of the intensive care unit, "wants to go home to take care of her cat "vital signs are stable and her appetite is still poor. Will have psychiatry check the patient to determine the disposition see if she needs to go to inpatient psychiatry unit over can be discharged home 24 TOTALS 10/29 0000 10/28 0000 Intake Total 3008.4 1000 Output Total 1979 1350 Balance 1028.4 -350 Intake, IV 1908.4 1000 Intake, Oral 1100 Number 1 Bowel Movements Output, Stool 0 Output, Urine 1979 135 Patient 100 lb 99 lb 15.99 oz Weight Weight Reported by Patient Reported by Patient Measurement Method Laboratory Tests 10/29/16 0630: Anion Gap 10, Estimated GFR > 60, Glucose 86, Calcium 9.2, Phosphorus 4.0, Magnesium 1.7, Total Bilirubin 0.3, AST 15, ALT 34, Albumin 3.0 L, CBC w Diff Pending, WBC Pending, RBC Pending, Hgb Pending, Hct Pending, MCV Pending, MCH Pending, RDW Pending, Plt Count Pending, MPV Pending, PUBS MCHC Pending 10/28/16 0830: Troponin I < 0.01 10/28/16 0400: Anion Gap 7, Estimated GFR > 60, Glucose 88, Calcium 8.4, Phosphorus 4.0, Magnesium 1.6, Total Bilirubin 0.2, AST 11 L, ALT 36, Albumin 2.5 L, CBC w Diff NO MAN DIFF REQ, RBC 3.75 L, MCV 85.6, MCH 28.1, RDW 14.7 H, MPV 7.2 L, Gran % 74.2, Lymphocytes % 18.8 L, Monocytes % 5.9, Eosinophils % 0.8, Basophils % 0.3, Absolute Granulocytes 6.9 H, Absolute Lymphocytes 1.7, Absolute Monocytes 0.6, Absolute Eosinophils 0.1, Absolute Basophils 0, PUBS MCHC 32.8 L 10/28/16 0210: Troponin I < 0.01 10/27/162049: Troponin I < 0.01 10/27/16 1910: pH 7.41, pCO2 31 L, pO2 84, HCO3 19 L, ABG O2 Sat (Measured) 96.0, P-50 (Temp Corrected) YES, Carboxyhemoglobin 1.4 L, O2 Concentration % 2L, Temperature 97.8, O2 Delivery Method NC, Phlebotomy Draw Site RIGHT BRACHIAL 10/27/16 1730: Anion Gap 11, Estimated GFR > 60, BUN/Creatinine Ratio 15.0, Glucose 75, Calcium 9.7, Magnesium 1.7, Total Bilirubin 0.3, AST 17, ALT 38, Alkaline Phosphatase 122, Creatine Kinase 86, Total Protein 6.2 L, Albumin 3.5, Globulin 2.7, Albumin/Globulin Ratio 1.3, CBC w Diff NO MAN DIFF REQ, RBC 3.89 L, MCV 85.2, MCH 28.2, RDW 14.5, MPV 7.2 L, Gran % 67.5, Lymphocytes % 23.5, Monocytes % 7.7 , Eosinophils % 0.8, Basophils % 0.5, Absolute Granulocytes 6.2, Absolute Lymphocytes 2.2, Absolute Monocytes 0.7 H, Absolute Eosinophils 0.1, Absolute Basophils 0, PUBS MCHC 33.1, Serum Alcohol < 10.0 10/27/16 1715: Urine Opiates Screen 1736.00, Methadone Screen 92, Barbiturate Screen < 60, Ur Phencyclidine Scrn < 6.00, Amphetamines Screen 511, U Benzodiazepines Scrn > 800 H, Urine Cocaine Screen < 50, Urine Cannabis Screen 15.60, Urine Color YEL, Urine Clarity CLDY H, Urine pH 6.0, Ur Specific [place] 1.020, Urine Protein NEG, Urine Ketones NEG, Urine Nitrite POS H, Urine Bilirubin NEG, Urine Urobilinogen 0.2, Ur Leukocyte Esterase SMALL H, Ur Microscopic SEDIMENT EXAMINED, Urine RBC RARE, Urine WBC 3-5 H, Ur Epithelial Cells FEW, Urine Bacteria PACKD H, Urine Mucus RARE, Urine Hemoglobin NEG, Urine Glucose NEG Microbiology 10/27 2244 UPPER RESP: Surveillance Culture - COMP 10/27 2244 GI: Surveillance Culture - COMP Vital Signs Date Time Temp Pulse Resp B/P B/P Pulse O2 O2 Flow FiO2 Mean Ox Delivery Rate 10/29 0730 98.3 90 18 118/84 98 Room Air 10/28 2244 98.6 76 20 118/56 94 Room Air 10/28 1820 99.2 88 18 142/52 98 Room Air 10/28 1600 98.3 76 18 150/66 98 Room Air
--- NOTE | 2016-10-29 10:53 | PN- Psychiatry ---
Assessment/Plan Impression: Identifying Info: 61-year-old single female known to [facility] psychiatry presents to emergency department by ambulance on 10/27/2016 with altered mental status. She was given Narcan in the field to good effect. Admitted to ICU for observation now downgraded to general medicine. SUBJECTIVE "I just want to get home to my cat." Patient endorses sadness related to being in the hospital. Offered IOP appointment and is initially resistant to the idea due to concerns about being "too old," and fear she will not have transportation. The patient agrees that her opiate abuse has been escalating. After much discussion the patient agrees to try IOP program. Collateral obtained from patient's outpatient psychiatric prescriber Yamilet Holt MD. She states that she has seen this patient for 10+ years and she seemed quite different at the last appointment in September, she was "pleasantly disorganized." She has been losing weight and not eating. At that visit the patient endorsed heroin use and was told if she did not follow-up at [facility] IOP she would no longer be able to be seen on an outpatient basis. At that point in intake appointment was made but not attended. She has a long history of trauma but has never been suicidal and never made a suicide attempt. Brief ROS Gait: Not observed Sleep: Adequate Appetite: Decreased OBJECTIVE Mental Status Exam Presentation/Appearance: Cooperative with evaluation. Hospital garb. Sitting in chair. Orientation: x4 Sensorium: Awake and alert Eye contact: Appropriate Affect: Somewhat blunted, congruent with stated mood Mood: Dysphoric Depression: Endorses Anxiety: Denies Thought Content: - Denies SI/HI, AH/VH, PI. States and also believes they will not kill themselves. - Denies Hopeless/Helpless Thoughts Thought Process: Linear Associations: Appropriate Speech: Normal tone and rate Judgment: Poor Insight: Poor Cognition: Memory: Grossly intact Attention/Concentration: Grossly intact Fund of Knowledge: Adequate Abstractions:Did not assess MMSE: Did not assess ASSESSMENT 61-year-old single female with a history of polysubstance abuse and multiple inpatient hospitalizations presents with altered mental status requiring multiple doses of Narcan as well as a Narcan drip. She has a recent history of heroin use which she denies currently. Her visiting nurse is concerned for her safety due to her opiate use and she has 2 other recent hospitalizations for altered mental status in the context of opiate misuse. At this time she agrees to IOP level of tx. Differential diagnosis Opiate use disorder By history Schizoaffective disorder, most recent episode depressed, moderate, in partial remission. Sedative hypnotic use disorder Alcohol use disorder, in remission Suggestion: 1. Please restart patient's previous psychotropic medications as in note from if she is to remain in the hospital another day . 2. Please include the following in the patient's discharge instructions "follow -up at [facility] intensive outpatient program for intake appointment on 11/03/2016 at 2 PM." Thank you for including psychiatry in this case we will continue to follow as needed until discharge. Subjective Subjective: as above Objective Last 24 Hrs of Vital Signs/I&O Current Medications Sig/Kobe Start time Last Medication Dose Route Stop Time Status Admin Acetaminophen 325 MG Q6P PRN 10/27 1944 AC 10/29 PO 1040 Albuterol Sulfate 2 PUF 4 TIMES/DAY NPO PRN 10/29 0832 AC INH Albuterol Sulfate 2 PUF 4 TIMES/DAY NPO 10/28 1000 DC 10/28 INH 2052 Aspirin Buffered 81 MG DAILY 10/28 1000 AC 10/29 PO 0836 Atorvastatin Calcium 10 MG 1700 10/28 1700 AC 10/28 PO 1631 Enoxaparin Sodium 40 MG DAILY 10/27 1934 AC 10/29 SC 0837 Fluticasone 2 PUF BID 10/27 2200 AC 10/29 Propionate INH 0838 Furosemide 10 MG DAILY PRN 10/27 2130 AC PO Insulin Aspart 0 TIDAC 10/28 0800 AC SC Latanoprost 1 GTT 10/27 2230 AC 10/27 OPH 2346 Lorazepam 1 MG Q1 NEEDED PRN 10/27 2100 DC IV Magnesium Oxide 400 MG DAILY 10/28 1000 AC 10/29 PO 0836 Omeprazole 40 MG DAILY AC 10/28 0700 AC 10/29 PO 0651 Oxycodone HCl 5 MG Q6P PRN 10/27 194 AC 10/29 PO 1039 Oxycodone/ 2 TAB Q6P PRN 10/27 2130 AC Acetaminophen PO Oxycodone/ 2 TAB Q6P PRN 10/27 1945 AC 10/29 Acetaminophen PO 0832 Sodium Chloride 1,000 ML Q13H 10/27 2030 DC 10/29 IV 0119 Solifenacin 5 MG DAILY 10/28 1000 AC 10/29 PO 0836 Tiotropium Manti 1 PUF DAILY 10/28 1000 AC 10/29 INH 0838 Laboratory Tests 10/29/16 0630: Anion Gap 10, Estimated GFR > 60, Glucose 86, Calcium 9.2, Phosphorus 4.0, Magnesium 1.7, Total Bilirubin 0.3, AST 15, ALT 34, Albumin 3.0 L, CBC w Diff NO MAN DIFF REQ, RBC 4.07 L, MCV 85.2, MCH 27.8, RDW 14.6 H, MPV 7.4, Gran % 72.0, Lymphocytes % 19.5 L, Monocytes % 7.9, Eosinophils % 0.3, Basophils % 0.3 , Absolute Granulocytes 6.4, Absolute Lymphocytes 1.7, Absolute Monocytes 0.7 H , Absolute Eosinophils 0, Absolute Basophils 0, PUBS MCHC 32.7 L Vital Signs Date Time Temp Pulse Resp B/P B/P Pulse O2 O2 Flow FiO2 Mean Ox Delivery Rate 10/29 0730 98.3 90 18 118/84 98 Room Air 10/28 2244 98.6 76 20 118/56 94 Room Air 10/28 1820 99.2 88 18 142/52 98 Room Air 10/28 1600 98.3 76 18 150/66 98 Room Air Intake & Output 10/29 1600 10/29 0800 10/29 0000 Intake Total 900 600 Output Total Balance 900 600 Intake, IV 600 300 Intake, Oral 300 300
[2016-10-29] MEDS ORDERED: NEURONTIN800 M2 PO (11:01)
--- NOTE | 2016-10-29 11:04 | Patient Discharge Instructions ---
Discharge Instructions General Discharge Information You were seen/treated for: Trazodone overdose Special Instructions: follow-up at [facility] intensive outpatient program for intake appointment on 11/03/2016 at 2 PM follow up with PCP in 1 week Diet Continue normal diet: Yes Activity Full Activity/No Limits: Yes Acute Coronary Syndrome Inclusion Criteria At DC or during hospital stay patient has or had the following: ACS DIAGNOSIS No Discharge Core Measures Meds if any: Prescribed or Continued at Discharge Meds if any: NOT Prescribed or Continued at Discharge Congestive Heart Failure Inclusion Criteria At DC or during hospital stay patient has or had the following: CHF DIAGNOSIS No Discharge Core Measures Meds if any: Prescribed or Continued at Discharge Meds if any: NOT Prescribed or Continued at Discharge Cerebrovascular accident Inclusion Criteria At DC or during hospital stay patient has or had the following: CVA/TIA Diagnosis No Discharge Core Measures Meds if any: Prescribed or Continued at Discharge Meds if any: NOT Prescribed or Continued at Discharge Venous thromboembolism Inclusion Criteria VTE Diagnosis No VTE Type NONE VTE Confirmed by (Test) NONE Discharge Core Measures - Per Current guidelines, there needs to be overlap - treatment for the first 5 days of Warfarin therapy. - If discharged on Warfarin prior to 5 days of - overlap therapy, the patient will need to be - assessed for post discharge needs including - *Post discharge parental anticoagulation - *Warfarin and/or parental anticoagulation education - *Follow up date to check INR post discharge At least 5 days overlap therapy as Inpatient No Meds if any: Prescribed or Continued at Discharge Note: Overlap Therapy is Warfarin and Anticoagulant Meds if any: NOT Prescribed or Continued at Discharge
--- NOTE | 2016-10-29 13:29 | NUR ---
Consulted to see pt due to lianne, skin issues and wt loss. Pt reports to eating three meals/day and very rarely snacks. Pt food recall includes spagetti and stuffed peppers with ground meat. Pt has BMI of 15.7 and weighs 100 lbs. At admission in 2013 pt weighed about 102.7 lbs. Weight has been pretty stable since 2014. Skin: stage 2 pressure injury to bilateral buttocks. Spoke to pt about eating a protein food at each meal. Gave coupons for Glucerna. Additionally gave handout on high protein foods. Pt was on her way out for discharge. RD following.
--- NOTE | 2016-10-30 12:31 | Discharge Summary ---
Visit Information Visit Dates Admission Date: 10/27/16 Discharge Date: 10/29/16 Hospital Course Course Attending Physician: AMANDA REEVES MD Primary Care Physician: AMANDA REEVES MD Consulting Request: Consulting Specialty: Psychiatry Consulting Physician: Star Muro MD Reason for Consult: drug overdose Hospital Course: 61-year-old white female known to [facility] psych and myself was doing reasonably well. The day of admission in the morning found unresponsive in her apartment was brought in by ambulance after blood testing she got Narcan without response to short-term and of time this was repeated a couple of times, eventually started on a Narcan drip which slowly her mental condition back to baseline. Patient was monitored in ICU and then transferred to the floor when she got off the drip was seen by psychiatry and on the thought that she could go home follow with outpatient psychiatry. Allergies: Coded Allergies: Sulfa (Sulfonamide Antibiotics) (Intermediate, BURNING-PT REPORTS WOUND TURNS GREEN 02/20/16) Significant Procedures: SERVICE DATE: 10/27/16-1649 EXAM TYPE: CAT - CT CERV SPINE WO IV CONTRAST; CT HEAD WO IV CONTRAST EXAMINATION: CT HEAD. CT CERVICAL SPINE CLINICAL INFORMATION: Found on ground unresponsive. Evaluate for fracture. COMPARISON: Prior cervical examinations most recent MRI September 2014. Prior CT head exams most recent October 2014 TECHNIQUE: CT scan of the head without contrast with additional coronal reformatted images obtained CT scan of the cervical spine with additional sagittal coronal reformatted images obtained at the acquisition workstation. FINDINGS: CT head: There is no mass hemorrhage or cerebral edema ventricles and basal cisterns are unremarkable. Soft tissues: Normal. Mastoid air cells: Normal. Sinuses: Normal. Cervical spine: There are postop changes related to laminectomy from C3 through C5. I do not see a fracture or acute abnormality. C3-C4: There is grade 1-2 anterolisthesis of C3 on C4. This anterior translation is more prominent than that noted on the prior MRI September 2014. There is severe disc space narrowing at this level. The facets are fused on the left at the C3-C4 level. The facets are fused in the right at the C4-C5 level. There is severe facet arthrosis on the right at the C2-C3 and C3-C4 level. There is moderate facet arthrosis on the left at the C2-C3 level. There is severe degenerative disc changes present at the C4-C5 and C5-C6 and C6-C7 levels with disc space narrowing endplate osteophytes. Emphysematous changes in the lung apices IMPRESSION: CT head: No acute abnormality. No change CT Cervical spine: No acute abnormality. Postsurgical changes as described. Increasing anterolisthesis of C3-C4 compared with the most recent MRI September 2014. Pertinent Lab Results: Laboratory Tests 10/270 1910 Blood Gas pH (7.35 - 7.45 PH) 7.41 pCO2 (35 - 45 TORR) 31 L pO2 (80 - 100 TORR) 84 HCO3 (21 - 28 MEQ/L) 19 L ABG O2 Sat (Measured) (>96.0 %) 96.0 P-50 (Temp Corrected) YES Carboxyhemoglobin (1.5 - 5.0 %) 1.4 L O2 Concentration % 2L Temperature (97.0 - 100.0 FARH) 97.8 O2 Delivery Method NC Chemistry Troponin I (< 0.11 ng/ml) < 0.01 Miscellaneous Phlebotomy Draw Site RIGHT BRACHIAL 10/27 10/27 1730 1715 Chemistry Sodium (137 - 145 mmol/L) 132 L Potassium (3.5 - 5.1 mmol/L) 4.3 Chloride (98 - 107 mmol/L) 103 Carbon Dioxide (22 - 30 mmol/L) 18 L Anion Gap (5 - 16) 11 BUN (7 - 17 mg/dL) 9 Creatinine (0.5 - 1.0 mg/dL) 0.6 Estimated GFR (>60 ml/min) > 60 BUN/Creatinine Ratio (7 - 25 %) 15.0 Glucose (65 - 99 mg/dL) 75 Calcium (8.4 - 10.2 mg/dL) 9.7 Magnesium (1.6 - 2.3 mg/dL) 1.7 Total Bilirubin (0.2 - 1.3 mg/dL) 0.3 AST (14 - 36 U/L) 17 ALT (9 - 52 U/L) 38 Alkaline Phosphatase (<127 U/L) 122 Creatine Kinase (30 - 135 U/L) 86 Total Protein (6.3 - 8.2 g/dL) 6.2 L Albumin (3.5 - 5.0 g/dL) 3.5 Globulin (1.9 - 4.2 gm/dL) 2.7 Albumin/Globulin Ratio (1.1 - 2.2 %) 1.3 Hematology CBC w Diff NO MAN DIFF REQ WBC (4.8 - 10.8 /CUMM) 9.2 RBC (4.20 - 5.40 /CUMM) 3.89 L Hgb (12.0 - 16.0 G/DL) 11.0 L Hct (37 - 47 %) 33.1 L MCV (81.0 - 99.0 FL) 85.2 MCH (27.0 - 31.0 PG) 28.2 RDW (11.5 - 14.5 %) 14.5 Plt Count (130 - 400 /CUMM) 513 H MPV (7.4 - 10.4 FL) 7.2 L Gran % (42.2 - 75.2 %) 67.5 Lymphocytes % (20.5 - 51.1 %) 23.5 Monocytes % (1.7 - 9.3 %) 7.7 Eosinophils % (0 - 5 %) 0.8 Basophils % (0.0 - 2.0 %) 0.5 Absolute Granulocytes (1.4 - 6.5 /CUMM) 6.2 Absolute Lymphocytes (1.2 - 3.4 /CUMM) 2.2 Absolute Monocytes (0.10 - 0.60 /CUMM) 0.7 H Absolute Eosinophils (0.0 - 0.7 /CUMM) 0.1 Absolute Basophils (0.0 - 0.2 /CUMM) 0 PUBS MCHC (33.0 - 37.0 G/DL) 33.1 Toxicology Urine Opiates Screen (>2000 NG/ML) 1736.00 Methadone Screen (>300 NG/ML) 92 Barbiturate Screen (>200 NG/ML) < 60 Ur Phencyclidine Scrn (>25 NG/ML) < 6.00 Amphetamines Screen (>1000 NG/ML) 511 U Benzodiazepines Scrn (>200 NG/ML) > 800 H Urine Cocaine Screen (>300 NG/ML) < 50 Urine Cannabis Screen (>50 NG/ML) 15.60 Serum Alcohol (<10 MG/DL) < 10.0 Urines Urine Color (YEL,AMB,STR) YEL Urine Clarity (CLEAR) CLDY H Urine pH (5.0 - 8.0) 6.0 Ur Specific [place] (1.001 - 1.035) 1.020 Urine Protein (NEG,<30 MG/DL) NEG Urine Ketones (NEG) NEG Urine Nitrite (NEG) POS H Urine Bilirubin (NEG) NEG Urine Urobilinogen (0.1 - 1.0 EU/dl) 0.2 Ur Leukocyte Esterase (NEG) SMALL H Ur Microscopic SEDIMENT EXAMINED Urine RBC (0 - 5 /HPF) RARE Urine WBC (0 - 2 /HPF) 3-5 H Ur Epithelial Cells (NONE,FEW) FEW Urine Bacteria (NEG/NONE) PACKD H Urine Mucus (FEW,NONE) RARE Urine Hemoglobin (NEG) NEG Urine Glucose (N MG/DL) NEG Alcohol level less than 10 Benzodiazepine screen more than 800 OPmorphine screen 1736.00 10/28/16 0830: Troponin I < 0.01 10/28/16 0400: Anion Gap 7, Estimated GFR > 60, Glucose 88, Calcium 8.4, Phosphorus 4.0, Magnesium 1.6, Total Bilirubin 0.2, AST 11 L, ALT 36, Albumin 2.5 L, CBC w Diff NO MAN DIFF REQ, RBC 3.75 L, MCV 85.6, MCH 28.1, RDW 14.7 H, MPV 7.2 L, Gran % 74.2, Lymphocytes % 18.8 L, Monocytes % 5.9, Eosinophils % 0.8, Basophils % 0.3, Absolute Granulocytes 6.9 H, Absolute Lymphocytes 1.7, Absolute Monocytes 0.6, Absolute Eosinophils 0.1, Absolute Basophils 0, PUBS MCHC 32.8 L 10/28/16 0210: Troponin I < 0.01 10/27/160: Troponin I < 0.01 10/27/16 1910: pH 7.41, pCO2 31 L, pO2 84, HCO3 19 L, ABG O2 Sat (Measured) 96.0, P-50 (Temp Corrected) YES, Carboxyhemoglobin 1.4 L, O2 Concentration % 2L, Temperature 97.8, O2 Delivery Method NC, Phlebotomy Draw Site RIGHT BRACHIAL 10/29/16 0630: Anion Gap 10, Estimated GFR > 60, Glucose 86, Calcium 9.2, Phosphorus 4.0, Magnesium 1.7, Total Bilirubin 0.3, AST 15, ALT 34, Albumin 3.0 L, CBC w Diff Pending, WBC Pending, RBC Pending, Hgb Pending, Hct Pending, MCV Pending, MCH Pending, RDW Pending, Plt Count Pending, MPV Pending, PUBS MCHC Pending Disposition Summary Disposition Principal Diagnosis: Drug overdose Additional Diagnosis: Chronic back pain Osteoporosis Depression Schizophrenia Hypertension Asthma Discharge Disposition: home health services Discharge Instructions General Discharge Information Code Status: Full Code Patient's Diet: As tolerated Patient's Activity: Tolerated Follow-Up Instructions/Appts: Follow-up with outpatient psychiatry and Dr. Reeves Medications at Discharge Discharge Medications: Continue taking these medications: Simvastatin (Zocor*) 10 MG TABLET 1 Tablet ORAL DAILY Comments: PER MED LIST NE HOME CARE ALTERNATIVE GIVEN WHILE IN [facility] Last Taken: 10/28/16 Time: 4:30 PM Solifenacin Succinate (Vesicare) 5 MG TABLET 1 Tablet ORAL DAILY Comments: PER MED LIST NE HOME CARE Last Taken: 10/29/16 Time: 8:30 AM Trazodone HCl (Trazodone HCl) 300 MG TABLET 1 Tablet ORAL Every night Comments: PER MED LIST NE HOME CARE NOT GIVEN Linaclotide (Linzess) 145 MCG CAPSULE 1 Capsule ORAL DAILY Comments: PER MED LIST NE HOME CARE NOT GIVEN Furosemide (Furosemide) 20 MG TABLET 0.5 Tablet ORAL DAILY as needed for EDEMA Comments: PER MED LIST NE HOME CARE NOT GIVEN Aspirin (Ecotrin*) 81 MG TABLET.DR 1 Tablet ORAL DAILY Comments: PER PT Last Taken: 10/29/16 Time: 8:30 AM Olanzapine (Zyprexa) 5 MG TABLET 1 Tablet ORAL Every night Comments: TAKES WITH 20MG TO EQUAL 25MG DOSE NOT GIVEN [place]-3/Dha/Epa/Fish Oil (Fish Oil 1,000 MG Softgel) 1,000 MG (120 MG-180 MG) CAPSULE 1 Capsule ORAL DAILY Comments: PER MED LIST NE HOME CARE NOT GIVEN Magnesium Oxide (Magnesium) 400 MG CAPSULE 1 Capsule ORAL DAILY Comments: PER MED LIST NE HOME CARE Last Taken: 10/29/16 Time: 8:30 AM Multivitamin (Multi-Day Vitamins) 1 EACH TABLET 1 Tablet ORAL DAILY Comments: PER MED LIST NE HOME CARE NOT GIVEN Nitroglycerin (Nitroglycerin) 0.4 MG TAB.SUBL 1 Tablet SUBLINGUAL As Directed as needed for CHEST PAIN Instructions: 1st sign of attack; may repeat every 5 minutes until relief; if pain persists after 3 tablets in 15 minutes, prompt medical att Comments: PER MED LIST NE HOME CARE NOT GIVEN Oxycodone HCl/Acetaminophen (Percocet 10-325 MG Tablet) 10 MG-325 MG TABLET 1 Tablet ORAL Q6H as needed for PAIN Comments: PER MED LIST NE HOME CARE Last Taken: 10/29/16 Time: 8:30 AM Potassium Chloride (Potassium Chloride) 10 MEQ TABLET.ER 2 Tablet ORAL DAILY Comments: PER MED LIST NE HOME CARE 20MEQ DAILY NOT GIVEN Omeprazole (Omeprazole) 40 MG CAPSULE.DR 1 Capsule ORAL TWICE DAILY Comments: PER MED LIST NE HOME CARE Last Taken: 10/29/16 Time: 7 AM Albuterol Sulfate (Proair Hfa) 90 MCG HFA.AER.AD 2 Puff Inhale through mouth 4 TIMES/DAY NPO Comments: PER MED LIST NE HOME CARE NOT GIVEN IN HOSPITAL- ALTERNATIVE MED PROVIDED Tiotropium Omro (Spiriva) 18 MCG CAP.W.DEV 1 Capsule Inhale through mouth DAILY Comments: PER MED LIST NE HOME CARE Last Taken: 10/29/16 Time: 8:30 AM Hydroxyzine Pamoate (Vistaril) 50 MG CAPSULE 1 Capsule ORAL 4 TIMES A DAY Qty = 120 Comments: PER MED LIST NE HOME CARE NOT GIVEN Olanzapine (Olanzapine) 20 MG TABLET 1 Tablet ORAL Every night Comments: TAKES WITH 5MG TO EQUAL 25MG DOSE PER MED LIST NE HOME CARE NOT GIVEN Perphenazine/Amitriptyline HCl (Perphen-Amitrip 4 MG-50 MG Tab) 4 MG-50 MG TABLET 1 Tablet ORAL THREE TIMES DAILY Qty = 90 Comments: PER MED LIST NE HOME CARE NOT GIVEN Topiramate (Topamax) 100 MG TABLET 1 Tablet ORAL TWICE DAILY Comments: PER PT MED LIST NE HOME CARE NOT GIVEN Bupropion HCl (Bupropion HCl Sr) 200 MG TABLET.ER 1 Tablet ORAL TWICE DAILY Qty = 60 Comments: Last Taken: 10/29/16 Time: 1 PM Metformin HCl (Metformin HCl ER) 500 MG TAB.ER.24H 1 Tablet ORAL DAILY Qty = 30 Comments: NOT GIVEN Gabapentin (Neurontin) 800 MG TABLET 1 Tablet ORAL THREE TIMES DAILY Days = 30 Comments: NOT GIVEN This prescription has been renewed Copies To: STANLEY CASTREJON,STAR Villarreal; AMANDA REEVES MD Attending Review Statement Documenting Attending: AMANDA REEVES MD
--- NOTE | 2016-11-02 15:31 | NUR ---
Late Entry: Aware of patients discharge on 10/29/16. Patient was agreeable to IOP and intake has been secured for her on 11/03/16 at 2:00pm.
== END 2016-10-29 13:30 | disposition home health service (06) | DRG 918 ==
LOC: ERH 16:29 → ERHI 18:52 → CRI 18:52 → ENRESERV 20:33 → CRI 22:14 → 2NB 10-28 18:06 → ENPENDDIS 10-29 11:16 → 2NB 10-29 13:30
PROVIDERS: Emergency Medicine; Student in an Organized Health Care Education/Training Program; ADMIT Internal Medicine
DX: T43.212A Poisoning by selective serotonin and norepinephrine reuptake inhibitors, intentional self-harm, initial encounter (principal); F20.9 Schizophrenia, unspecified; I10 Essential (primary) hypertension; R41.82 Altered mental status, unspecified; M81.0 Age-related osteoporosis without current pathological fracture; J45.909 Unspecified asthma, uncomplicated; E78.5 Hyperlipidemia, unspecified; J44.9 Chronic obstructive pulmonary disease, unspecified; M54.5 Low back pain; F11.10 Opioid abuse, uncomplicated; F13.10 Sedative, hypnotic or anxiolytic abuse, uncomplicated; E11.9 Type 2 diabetes mellitus without complications; Z79.84 Long term (current) use of oral hypoglycemic drugs
CPT/HCPCS: 2NBSP; CCU; 36415; 80307; 81001; 82436; 87086; 93005; 93010; 96361; 96374; 96376; 99291; G0480; J1650; J2310; J3490; J7060

== ENCOUNTER 2018-03-03 16:50 | Emergency (ER) | payer OTHER, MEDICARE ==
[~2018-03-03 16:50] MED LIST changes: +BUPROPION HCL100 M2 PO; +BUPROPION HCL200 M2 PO; +CEPHALEXIN500 M3 PO; +DAILY VALUE1 EACH PO; +DOCUSATE SODIU100 M3 PO; +LEVAQUIN500 M1 PO; +MEDROL4 M2 PO; +METFORMIN HCL500 M4 PO; +MIRALAX119 GM PO; -MULTI-DAY VITA1 EACH PO; +PERCOCET 5-3251 EACH PO; +TESSALON PERLE100 M1 PO
[2018-03-03 20:10] LABS: ABSOLUTE BASOPHIL COUNT 0 /CUMM (0.0-0.2); ABSOLUTE EOSINOPHIL COUNT 0 /CUMM (0.0-0.7); ABSOLUTE LYMPH COUNT 2.1 /CUMM (1.2-3.4); ABSOLUTE MONOCYTE COUNT 0.9 /CUMM (0.10-0.60); BASOPHIL % 0.2 % (0.0-2.0); EOSINOPHIL % 0 % (0-5); GRANULOCYTE % 61.9 % (42.2-75.2); HEMATOCRIT 37.6 % (37-47); MEAN CORPUSCULAR HGB 27.4 PG (27.0-31.0); MEAN CORPUSCULAR HGB CONC 33.6 G/DL (33.0-37.0); MEAN CORPUSCULAR VOLUME 81.8 FL (81.0-99.0); MEAN PLATELET VOLUME 7.1 FL (7.4-10.4); PLATELET COUNT 345 /CUMM (130-400); RBC DISTRIBUTION WIDTH 15.1 % (11.5-14.5)
--- NOTE | 2018-03-03 22:08 | CT SCAN REPORT ---
EXAMINATION: CT ABDOMEN AND PELVIS WITH CONTRAST CLINICAL INFORMATION: Abdominal distention. COMPARISON: CT abdomen pelvis 04/24/2017. TECHNIQUE: Multidetector volumetric imaging was performed of the abdomen and pelvis following IV administration of 95 mL of Optiray 320 intravenous contrast. Sagittal and coronal reformatted images were obtained on the technologist's workstation. DLP: 254 mGy-cm FINDINGS: LUNG BASES: There is a right basilar atelectasis. The lung bases are clear. LIVER, GALLBLADDER, AND BILIARY TREE: The liver is normal in size, shape, and attenuation. No focal hepatic lesion or biliary ductal dilatation is present. Gallbladder has been surgically removed. PANCREAS: Unremarkable. SPLEEN: Unremarkable. ADRENAL GLANDS: Unremarkable. KIDNEYS AND URETERS: The kidneys are normal in size, shape, and attenuation. No hydronephrosis, hydroureter, or calculi seen. No perinephric stranding. BLADDER: The bladder is mildly distended. No bladder wall thickening or radiopaque stone seen.. GASTROINTESTINAL TRACT: There is significant large number of stool seen throughout a redundant colon consistent with severe constipation. The small bowel loops are nondistended. No free air or free fluid seen. ABDOMINAL WALL: No significant hernia is appreciated. LYMPH NODES: Normal. VASCULAR: Unremarkable. PELVIC VISCERA: No free air or free fluid seen. OSSEOUS STRUCTURES: There are degenerative disc changes L5-S1 disc level with vacuum disc phenomena. No lytic or sclerotic process seen. IMPRESSION: Significantly large amount of stool seen throughout the colon consistent with severe constipation. There are no signs of obstruction, free air or free fluid.
--- NOTE | 2018-03-03 22:21 | ED GI/GU/ABDOMINAL COMPLAINT ---
History of Present Illness General Chief Complaint: Abdominal Pain/Flank Pain Stated Complaint: BIBA ABDOMNIAL,EXTENED Source: patient, old records Exam Limitations: no limitations Vital Signs & Intake/Output Vital Signs & Intake/Output Vital Signs Date Time Temp Pulse Resp B/P B/P Pulse O2 O2 Flow FiO2 Mean Ox Delivery Rate 03/03 2350 98.0 68 20 141/73 97 Room Air 03/03 2252 98.6 72 16 134/63 96 Room Air 03/03 2138 Room Air 03/03 2047 78 18 143/67 97 Room Air 03/03 1707 96.9 87 16 116/68 95 Room Air ED Intake and Output 03/04 0000 03/03 1200 Intake Total 0 Output Total 0 Balance 0 Intake, Oral 0 Output, Urine 0 Allergies Coded Allergies: Sulfa (Sulfonamide Antibiotics) (Intermediate, BURNING-PT REPORTS WOUND TURNS GREEN 02/20/16) Reconcile Medications Albuterol Sulfate (Proair Hfa) 90 MCG HFA.AER.AD 2 PUF INH 4 TIMES/DAY NPO RESPIRATORY (Reported) Aspirin (Ecotrin*) 81 MG TABLET.DR 1 TAB PO DAILY HEART (Reported) Benzonatate (Tessalon Perle) 100 MG CAPSULE 1 CAP PO TID PRN COUGH Bupropion HCl (Bupropion HCl Sr) 200 MG TABLET.ER 1 TAB PO BID MOOD (Reported ) Cephalexin 500 MG CAPSULE 1 TAB PO Q6 Cellulitis . Docusate Sodium 100 MG CAPSULE 1 TAB PO DAILY NEEDED PRN CONSTIPATION . Furosemide 20 MG TABLET 0.5 TAB PO DAILY PRN EDEMA (Reported) Gabapentin (Neurontin) 800 MG TABLET 1 TAB PO TID NERVE PAIN Hydroxyzine Pamoate (Vistaril) 50 MG CAPSULE 1 CAP PO 4 TIMES/DAY MOOD ( Reported) Linaclotide (Linzess) 145 MCG CAPSULE 1 CAP PO DAILY GI (Reported) Magnesium Oxide (Magnesium) 400 MG CAPSULE 1 CAP PO DAILY SUPPLEMENT ( Reported) Metformin HCl (Metformin HCl ER) 500 MG TAB.ER.24H 1 TAB PO DAILY DIABETES ( Reported) Methylprednisolone. (Medrol) 4 MG TAB.DS.PK 1 DP PO AD INFLAMMATION 6 on day 1 then reduce by one tablet daily until gone Multivitamin (Daily Value) 1 EACH TABLET 1 TAB PO DAILY VITAMIN SUPPORT ( Reported) Nitroglycerin 0.4 MG TAB.SUBL 1 TAB SL AD PRN CHEST PAIN (Reported) 1st sign of attack; may repeat every 5 minutes until relief; if pain persists after 3 tablets in 15 minutes, prompt medical att Olanzapine (Zyprexa) 5 MG TABLET 1 TAB PO QPM MENTAL HEALTH (Reported) Olanzapine 20 MG TABLET 1 TAB PO QPM MENTAL HEALTH (Reported) Stanton-3/Dha/Epa/Fish Oil (Fish Oil 1,000 MG Softgel) 1,000 MG (120 MG-180 MG) CAPSULE 1 CAP PO DAILY SUPPLEMENT (Reported) Omeprazole 40 MG CAPSULE.DR 1 CAP PO BID GI (Reported) Oxycodone HCl/Acetaminophen (Percocet 5-325 MG Tablet) 5 MG-325 MG TABLET 1 TAB PO BID PRN PAIN Perphenazine/Amitriptyline HCl (Perphen-Amitrip 4 MG-50 MG Tab) 4 MG-50 MG TABLET 1 TAB PO TID MENTAL HEALTH (Reported) Polyethylene Glycol 3350 (Miralax) 17 GRAM/DOSE POWDER 17 GM PO DAILY constipation mix with water, juice, soda, coffee or tea Polyethylene Glycol 3350 (Miralax) 17 GRAM/DOSE POWDER 17 GM PO DAILY PRN CONSTIPATION Potassium Chloride 10 MEQ TABLET.ER 2 TAB PO DAILY SUPPLEMENT (Reported) Sennosides (Senna) 8.6 MG TABLET 1 TAB PO DAILY constipation Simvastatin (Zocor*) 10 MG TABLET 1 TAB PO DAILY CHOLESTEROL (Reported) Solifenacin Succinate (Vesicare) 5 MG TABLET 1 TAB PO DAILY BLADDER (Reported ) Tiotropium [place] (Spiriva) 18 MCG CAP.W.DEV 1 CAP INH DAILY RESPIRATORY ( Reported) Topiramate (Topamax) 100 MG TABLET 1 TAB PO BID UNKNOWN (Reported) Trazodone HCl 300 MG TABLET 1 TAB PO QPM SLEEP (Reported) Triage Note: PT TO ED WITH C/O CONSTIPATION ADN ABD DISTENSION. REPORTS NO BM X 4 WEEKS. REPORTS ABD DISTENSION IS CHRONIC X 1 YEAR. DENIES HX LIVER DZ. DENIES N/V. TAKING PRUNE JUICE W/O EFFECT. Triage Nurses Notes Reviewed? yes LMP (ages 10-50): post menopausal ? n Is pt currently ? No Onset: Last week Duration: day(s):, constant, continues in ED, getting worse Timing: recent history Quality/Severity: fullness, moderate, severe Location: generalized abdomen Radiation: no radiation Activities at Onset: rest Prior Abdominal Problems: similar symptoms Past Sexual History: Unobtainable at this time Sexually Active: No No Modifying Factors: none HPI: Patient complains of chronic abdominal distention with difficulty moving her bowels. Her bowel habit is usually once per week. She also complains of hernia that needs to be repaired. She denies fever chills nausea vomiting diarrhea chest pain cough shortness breath headache dysuria rash bleeding. Past History Travel History Traveled to [place] past 21 day No Medical History Any Pertinent Medical History? see below for history Neurological: NONE EENT: NONE Cardiovascular: hypertension, hyperlipidemia Respiratory: asthma, COPD Gastrointestinal: NONE Hepatic: NONE Renal: NONE Musculoskeletal: chronic back pain, osteoarthritis, osteoporosis Psychiatric: anxiety, bipolar disease, depression, schizophrenia Endocrine: DIABETES BORDERLINE Blood Disorders: NONE Cancer(s): NONE MRI TECHNOLOGIST/Reproductive: NONE History of MRSA: No History of VRE: No History of CDIFF: No Surgical History Surgical History: NECK SURGERY BACK SURGERY Psychosocial History Who do you live with Patient/Self Services at Home Nursing What is your primary language Irish Tobacco Use: Current Daily Use Daily Tobacco Use Amount/Type: => 5 Cigarettes daily Family History Family History, If Any: MOTHER Relation not specified for: FH: heart disease Hx Contributory? No Review of Systems Review of Systems Constitutional: Reports: no symptoms. EENTM: Reports: no symptoms. Respiratory: Reports: no symptoms. Cardiovascular: Reports: no symptoms. GI: Reports: see HPI, abdominal pain, constipation. Genitourinary: Reports: no symptoms. Musculoskeletal: Reports: no symptoms. Skin: Reports: no symptoms. Neurological/Psychological: Reports: no symptoms. Hematologic/Endocrine: Reports: no symptoms. Immunologic/Allergic: Reports: no symptoms. All Other Systems: Reviewed and Negative Physical Exam Physical Exam General Appearance: well developed/nourished, alert, awake, anxious Head: atraumatic, normal appearance Eyes: Bilateral: normal appearance, PERRL, EOMI, normal inspection. Ears, Nose, Throat, Mouth: hearing grossly normal, moist mucous membrane Neck: normal inspection, supple, full range of motion, normal alignment Respiratory: normal breath sounds, chest non-tender, no respiratory distress, quiet respiration, lungs clear Cardiovascular: regular rate/rhythm, normal peripheral pulses, norml femoral pulses equa Peripheral Pulses: 4+ carotid (R), 4+ carotid (L) Gastrointestinal: non-tender, no organomegaly, abnormal bowel sounds, distention Back: normal inspection, normal range of motion Extremities: normal range of motion, no ligament instability Neurologic/Psych: no motor/sensory deficits, awake, alert, oriented x 3, normal gait, 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 No Sepsis Present: No Sepsis Focused Exam Completed? No Progress Differential Diagnosis: bowel obstruction, gastritis, pancreatitis, SBO Plan of Care: Orders Procedure Date/time Status AMMONIA LEVEL 03/03 2116 Complete LIPASE 03/03 1921 Complete LACTIC ACID 03/03 1921 Complete COMPREHENSIVE METABOLIC PANEL 03/03 1921 Complete CBC WITHOUT DIFFERENTIAL 03/03 1921 Complete Laboratory Tests 03/03/182220: Lactic Acid Cancelled 03/03/182119: Ammonia < 9 L 03/03/181952: Anion Gap 13, Estimated GFR > 60, BUN/Creatinine Ratio 13.8, Glucose 90, Lactic Acid 0.7, Calcium 10.3 H, Total Bilirubin 0.2, AST 17, ALT 23, Alkaline Phosphatase 97, Total Protein 7.0, Albumin 4.3, Globulin 2.7, Albumin/Globulin Ratio 1.6, Lipase 339 H, CBC w Diff NO MAN DIFF REQ, RBC 4.60, MCV 81.8, MCH 27.4, MCHC 33.6, RDW 15.1 H, MPV 7.1 L, Gran % 61.9, Lymphocytes % 26.8, Monocytes % 11.1 H, Eosinophils % 0, Basophils % 0.2, Absolute Granulocytes 5.0 , Absolute Lymphocytes 2.1, Absolute Monocytes 0.9 H, Absolute Eosinophils 0, Absolute Basophils 0 Diagnostic Imaging: Viewed by Me: CT Scan. Discussed w/RAD: CT Scan. Radiology Impression: Significantly large amount of stool seen throughout the colon consistent with severe constipation. There are no signs of obstruction, free air or free fluid. Initial ED EKG: none Departure Departure Time of Disposition: 2353 Disposition: HOME OR SELF CARE Condition: Stable Clinical Impression Primary Impression: Obstipation Referrals: Luis Reeves MD (PCP/Family) Departure Forms: Customer Survey General Discharge Information Prescriptions: Current Visit Scripts Sennosides (Senna) 1 TAB PO DAILY #60 TAB Polyethylene Glycol 3350 (Miralax) 17 GM PO DAILY #527 GM mix with water, juice, soda, coffee or tea
[2018-03-03] MEDS ORDERED: SENNA8.6 M3 PO (23:55)
[2018-03-03] MEDS ORDERED: MIRALAX119 GM PO (23:55)
[2018-03-04 00:57] VITALS: BP 142/69
--- NOTE | 2018-03-04 17:51 | OP PSYCH INCIDENTAL NOTE ---
OPS Incidental Note Details: Rcopia: hydroxyzine HCl 10 mg tablet : Take 1 tablet by mouth three times a day as needed Disp. 90 Rfl #1 (last: 03/04/2018 ) by ASIF started on: 03/04/2018 stop on: 05/03/2018 hydroxyzine HCl 50 mg tablet : Take 1 tablet by mouth three times a day as needed Disp. 90 Rfl #1 (last: 03/04/2018 ) by MB started on: 03/04/2018 stop on: 05/03/2018 Neurontin 800 mg tablet : Take 1 tablet by mouth three times a day Disp. 90 Rfl #1 (last: 03/04/2018 ) by MB started on: 03/04/2018 stop on: 05/03/2018 perphenazine-amitriptyline 4 mg-50 mg tablet : Take 1 tablet by mouth three times a day Disp. 90 Rfl #1 (last: 03/04/2018 ) by MB started on: 03/04/2018 stop on: 05/03/2018 trazodone 100 mg tablet : Take 3 tablet by mouth at bedtime Disp. 270 Rfl #2 ( last: 12/30/2017 ) by MB started on: 12/30/2017 stop on: 09/26/2018 Wellbutrin SR 200 mg tablet, 12 hr sustained-release : Take 1 tablet by mouth twice a day Disp. 60 Rfl #2 (last: 12/30/2017 ) by ASIF started on: 12/30/2017 stop on: 03/30/2018 Zyprexa 20 mg tablet : Take 1 tablet by mouth at bedtime Disp. 30 Rfl #1 (last: 03/04/2018 ) by ASIF started on: 03/04/2018 stop on: 04/29/2018 Zyprexa 5 mg tablet : Take 1 tablet by mouth every night Disp. 30 Rfl #1 (last: 03/04/2018 ) by ASIF started on: 03/04/2018 stop on: 05/03/2018 [facility] [address] [place], [place] [address] (Font[place])
== END 2018-03-04 00:58 ==
LOC: ERH 16:50
PROVIDERS: Physician Assistant
DX: K59.00 Constipation, unspecified (principal)
CPT/HCPCS: 74177